=== PATIENT | female | born 1985 | race Caucasian/White ===

== ENCOUNTER → 2016-10-16 | Outpatient (CLI) | payer OTHER ==
[2016-10-16 12:29] LABS: ANION GAP 12 (5-19); BLOOD UREA NITROGEN 9 mg/dL (7-20); CALCIUM 9.2 mg/dL (8.4-10.2); CARBON DIOXIDE 26 mmol/L (22-30); CHLORIDE 106 mmol/L (98-107); CREATININE RESULT 0.79 mg/dL (0.52-1.25); GLUCOSE 76 mg/dL (75-110); POTASSIUM 4.4 mmol/L (3.6-5.0); SODIUM 143.8 mmol/L (137-145)
[2016-10-16 12:40] LABS: APPEARANCE,URINE CLEAR; BILIRUBIN,URINE NEGATIVE (NEGATIVE); GLUCOSE, URINE NEGATIVE (NEGATIVE); KETONES,URINE NEGATIVE (NEGATIVE); LEUKOCYTE ESTERASE,URINE NEGATIVE (NEGATIVE); NITRITE,URINE NEGATIVE (NEGATIVE); PROTEIN,URINE NEGATIVE (NEGATIVE); URINE SPECIFIC GRAVITY 1.009; UROBILINOGEN,URINE NEGATIVE mg/dL (<2.0)
== END ==
LOC: OD 11:17
PROVIDERS: ATTEND Internal Medicine Nephrology
DX: R31.29 Other microscopic hematuria (principal)
CPT/HCPCS: 36415; 80048; 81001

== ENCOUNTER 2017-02-06 10:17 | Observation (INO) | payer OTHER ==
[2017-02-06] MEDS ORDERED: NORMAL SALINE 1000 ML 1,000 ML IV ONE ×2 (11:14→13:39)
[2017-02-06] MEDS ORDERED: METOCLOPRAMIDE HCL ORAL SOLN 10 MG/10 ML UDCUP PO ONE (11:14)
[2017-02-06] MEDS ORDERED: LIDOCAINE 2% VISCOUS SOLN 20 ML UDCUP PO ONE (11:14)
[2017-02-06] MEDS ORDERED: MAG HYDROX/AL HYDROX/SIMETH SUSP 30 ML UDCUP PO ONE (11:14)
--- NOTE | 2017-02-06 11:14 | ER Document Report ---
ED Medical Screen (RME) - General Mode of Arrival: Ambulatory Information source: Patient TRAVEL OUTSIDE OF THE [place] IN LAST 30 DAYS: No - HPI Patient complains to provider of: Burning sensation to the sternum Onset: Other - 2 days ago Associated Symptoms: Other - see notes above - Related Data Smoking: Cigarettes Frequency of alcohol use: None Drug Abuse: None <SELENE DORANTES - Last Filed: 02/06/17 12:11> <SARAH MONTERO - Last Filed: 02/06/17 14:54> - General Chief Complaint: Abdominal Pain Stated Complaint: CENTER CHEST PAIN ABDOMEN PAIN Time Seen by Provider: 02/06/17 11:01 Notes: 31-year-old female with history of precancerous polyps and upper GI pain presents to the ED complaining of a burning sensation to the sternum that started 2 days ago. Patient reports that on 02/04/2017 the burning was accompanied with right lower rib pain, but not today. Patient recently had an incision and drainage procedure performed and reports that she has been feeling unwell since. Patient was prescribed clindamycin secondary to the procedure. Patient is additionally complaining of dry heaving, but no vomiting. Patient has a family history of gall bladder problems, but denies any problems herself. (SELENE DORANTES) - Related Data Allergies/Adverse Reactions: No Known Drug Allergies Allergy (Verified 02/06/17 11:00) Home Medications: Current Home Medications Clindamycin HCl [Clindamycin HCl] 300 mg PO TID 02/06/17 [History] Past Medical History - General Information source: Patient - Social History Chew tobacco use (# tins/day): No Frequency of alcohol use: None Drug Abuse: None Family history: Other - gall bladder problems - Past Medical History Cardiac Medical History: Denies: Hx Coronary Artery Disease, Hx Heart Attack, Hx Hypertension Pulmonary Medical History: Denies: Hx Asthma, Hx Bronchitis, Hx COPD, Hx Pneumonia Neurological Medical History: Denies: Hx Cerebrovascular Accident, Hx Seizures Renal/ Medical History: Denies: Hx Peritoneal Dialysis GI Medical History: Denies: Hx Hepatitis, Hx Hiatal Hernia, Hx Pancreatitis, Hx Ulcer Musculoskeltal Medical History: Denies Hx Arthritis Infectious Medical History: Denies: Hx Hepatitis Past Surgical History: Denies: Hx Hysterectomy, Hx Mastectomy, Hx Open Heart Surgery, Hx Pacemaker - Immunizations Hx Diphtheria, Pertussis, Tetanus Vaccination: No <SELENE DORANTES - Last Filed: 02/06/17 12:11> Review of Systems - Review of Systems Constitutional: See HPI EENT: No symptoms reported Cardiovascular: No symptoms reported Respiratory: No symptoms reported Gastrointestinal: See HPI, Other - dry heaving. denies: Vomiting Genitourinary: No symptoms reported Female Genitourinary: No symptoms reported Musculoskeletal: See HPI, Other - right lower rib pain Skin: No symptoms reported Hematologic/Lymphatic: No symptoms reported Neurological/Psychological: No symptoms reported -: Yes All other systems reviewed and negative <SELENE DORANTES - Last Filed: 02/06/17 12:11> Physical Exam - General General appearance: Alert In distress: None - HEENT Head: Normocephalic, Atraumatic - Respiratory Respiratory status: No respiratory distress - Abdominal Inspection: Normal Tenderness: Tender - RUQ and epigastric tenderness to palpation <SELENE DORANTES - Last Filed: 02/06/17 12:11> - Vital signs Vitals: Temp Pulse Resp BP Pulse Ox 98.3 F 79 14 126/79 H 98 02/06/17 10:29 02/06/17 10:29 02/06/17 10:29 02/06/17 10:29 02/06/17 10:29 Course - Laboratory Result Diagrams: 02/06/17 11:31 02/06/17 11:31 <SELENE DORANTES - Last Filed: 02/06/17 12:11> - Laboratory Result Diagrams: 02/06/17 11:31 02/06/17 11:31 <SARAH MONTERO - Last Filed: 02/06/17 14:54> - Vital Signs Vital signs: Temp Pulse Resp BP Pulse Ox 98.3 F 79 14 126/79 H 98 02/06/17 10:29 02/06/17 10:29 02/06/17 10:29 02/06/17 10:29 02/06/17 10:29 - Laboratory Laboratory results interpreted by me: 02/06/17 02/06/17 11:31 11:31 WBC 11.8 H Total Protein 8.4 H Doctor's Discharge <SELENE DORANTES - Last Filed: 02/06/17 12:11> <SARAH MONTERO - Last Filed: 02/06/17 14:54> - Discharge Clinical Impression: Cholelithiasis without cholecystitis Condition: Stable Disposition: ADMITTED INPATIENT Scribe Documentation - Scribe Written by Stephen:: Stephen Rangel, 02/06/2017 1219 acting as scribe for :: Sasha <SELENE DORANTES - Last Filed: 02/06/17 12:11>
[2017-02-06 11:51] LABS: ABSOLUTE EOSINOPHILS # (AUTO) 0.1 10^3/uL (0.0-0.6); ABSOLUTE LYMPHOCYTES (AUTO) 3.2 10^3/uL (0.5-4.7); ABSOLUTE MONOCYTES (AUTO) 0.6 10^3/uL (0.1-1.4); ABSOLUTE NEUT (AUTO) 7.8 10^3/uL (1.7-8.2); BASOPHILS % (AUTO) 0.3 % (0-2); HEMATOCRIT 41.5 % (36.0-47.0); HEMOGLOBIN 14.5 g/dL (12.0-15.5); LYMPHOCYTES % (AUTO) 27.3 % (13-45); MEAN CORPUSCULAR HEMOGLOBIN 31.5 pg (27.0-33.4); MEAN CORPUSCULAR HGB CONC 34.8 g/dL (32.0-36.0); MEAN CORPUSCULAR VOLUME 90 fl (80-97); MONOCYTES % (AUTO) 5.1 % (3-13); RED BLOOD COUNT 4.59 10^6/uL (3.72-5.28); RED CELL DISTRIBUTION WIDTH 13.1 % (11.5-14.0); SEGMENTED NEUTROPHILS % (AUTO) 66.3 % (42-78); WHITE BLOOD COUNT 11.8 10^3/uL (4.0-10.5)
[2017-02-06 12:16] LABS: ALANINE AMINOTRANSFERASE 49 U/L (9-52); ALBUMIN 4.5 g/dL (3.5-5.0); ALKALINE PHOSPHATASE 109 U/L (38-126); ANION GAP 13 (5-19); ASPARTATE AMINO TRANSFERASE 25 U/L (14-36); BILIRUBIN,DIRECT 0.4 mg/dL (0.0-0.4); BILIRUBIN,TOTAL 0.5 mg/dL (0.2-1.3); BLOOD UREA NITROGEN 13 mg/dL (7-20); CALCIUM 9.5 mg/dL (8.4-10.2); CARBON DIOXIDE 26 mmol/L (22-30); CHLORIDE 106 mmol/L (98-107); CREATININE RESULT 0.77 mg/dL (0.52-1.25); GLUCOSE 94 mg/dL (75-110); LIPASE 70.6 U/L (23-300); POTASSIUM 4.3 mmol/L (3.6-5.0); SODIUM 144.7 mmol/L (137-145); TOTAL PROTEIN 8.4 g/dL (6.3-8.2)
--- NOTE | 2017-02-06 13:03 | RADIOLOGY REPORT (SQ) ---
EXAM DESCRIPTION: U/S ABDOMEN LIMITED W/O DOP COMPLETED DATE/TIME: 02/06/2017 12:20 pm REASON FOR STUDY: RUQ pain, TTP, dry heaving COMPARISON: 12/25/2015 TECHNIQUE: Dynamic and static grayscale images acquired of the abdomen and recorded on PACS. Wilmero kevan selected color Doppler and spectral images recorded. LIMITATIONS: None. FINDINGS: PANCREAS: No masses. Visualized pancreatic duct normal caliber. LIVER: 17.9 cm. Normal echotexture. No masses. LIVER VASCULATURE: Normal directional flow of the main portal vein and hepatic veins. GALLBLADDER: A couple of large gallstones are present. The wall thickness is within normal limits. There is no pericholecystic fluid. ULTRASOUND-DETECTED HARGROVE'S SIGN: Negative. INTRAHEPATIC DUCTS AND COMMON DUCT: CBD and intrahepatic ducts normal caliber. No filling defects. INFERIOR VENA CAVA: Normal flow. AORTA: No aneurysm. RIGHT KIDNEY: Normal size, 10.9 cm. Normal echogenicity. No solid or suspicious masses. No hydroneph rosis. No calcifications. PERITONEAL AND RIGHT PLEURAL SPACE: No ascites or effusions. OTHER: No other significant findings. IMPRESSION: 1. Hepatomegaly. 2. Cholelithiasis with no evidence of acute cholecystitis. TECHNICAL DOCUMENTATION: JOB ID: [id number] [employer]- All Rights Reserved
--- NOTE | 2017-02-06 13:20 | ER Document Report ---
ED GI/ <JAIRO CHAPPELL - Last Filed: 02/06/17 13:35> - General Mode of Arrival: Ambulatory Information source: Patient TRAVEL OUTSIDE OF THE [place] IN LAST 30 DAYS: No <MIKEY MEDRANO - Last Filed: 02/06/17 14:17> - General Chief Complaint: Abdominal Pain Stated Complaint: CENTER CHEST PAIN ABDOMEN PAIN Time Seen by Provider: 02/06/17 11:01 Notes: Patient is a 31-year-old female who presents to the emergency department today with complaints of abdominal pain. Patient states 2 days ago she woke up at 0330 with what she thought was chest pain in the middle the night. Patient states today at 0730 she developed right upper quadrant pain that radiated to her back. Patient states her mother had to have a cholecystectomy around this age. (MIKEY MEDRANO) - Related Data Allergies/Adverse Reactions: No Known Drug Allergies Allergy (Verified 02/06/17 11:00) Home Medications: Current Home Medications Clindamycin HCl [Clindamycin HCl] 300 mg PO TID 02/06/17 [History] Past Medical History - General Information source: Patient - Social History Smoking Status: Never Smoker Cigarette use (# per day): No Chew tobacco use (# tins/day): No Frequency of alcohol use: None Drug Abuse: None Lives with: Family Family History: Reviewed & Not Pertinent Patient has suicidal ideation: No Surgical Hx: Negative - Immunizations Hx Diphtheria, Pertussis, Tetanus Vaccination: No <MIKEY MEDRANO - Last Filed: 02/06/17 14:17> Review of Systems - Review of Systems Constitutional: No symptoms reported EENT: No symptoms reported Cardiovascular: No symptoms reported Respiratory: No symptoms reported Gastrointestinal: See HPI, Abdominal pain Genitourinary: No symptoms reported Female Genitourinary: No symptoms reported Musculoskeletal: No symptoms reported Skin: No symptoms reported Hematologic/Lymphatic: No symptoms reported Neurological/Psychological: No symptoms reported -: Yes All other systems reviewed and negative <MIKEY MEDRANO - Last Filed: 02/06/17 14:17> Physical Exam <JAIRO CHAPPELL - Last Filed: 02/06/17 13:35> <MIKEY MEDRANO - Last Filed: 02/06/17 14:17> - Vital signs Vitals: Temp Pulse Resp BP Pulse Ox 98.3 F 79 14 126/79 H 98 02/06/17 10:29 02/06/17 10:29 02/06/17 10:29 02/06/17 10:29 02/06/17 10:29 - Notes Notes: Physical Exam: General: Alert, appears well. HEENT: Normocephalic. Atraumatic. PERRL. Extraocular movements intact. Oropharynx clear. Neck: Supple. Non-tender. Respiratory: No respiratory distress. Clear and equal breath sounds bilaterally. Cardiovascular: Regular rate and rhythm. Abdominal: Obese, right upper quadrant tenderness with palpation. No distension. Normal Bowel Sounds. Back: Non-tender. No deformity or step off. Extremities: Moves all four extremities. Upper extremities: Normal inspection. Normal ROM. Lower extremities: Normal inspection. No edema. Normal ROM. Neurological: Normal cognition. AAOx4. Normal speech. Psychological: Normal affect. Normal Mood. Skin: Area over left posterior medial thigh with small area of erosion consistent with healing abscess. (MIKEY MEDRANO) Course - Laboratory Result Diagrams: 02/06/17 11:31 02/06/17 11:31 - Diagnostic Test Radiology reviewed: Image reviewed, Reports reviewed - Gallbladder ultrasound shows 2 large gallstones without gallbladder wall thickening or cholecystic fluid - Consults Dr. Carr Time consulted: 13:20 Consulted provider: will come to ER <JAIRO CHAPPELL - Last Filed: 02/06/17 13:35> - Laboratory Result Diagrams: 02/06/17 11:31 02/06/17 11:31 <MIKEY MEDRANO - Last Filed: 02/06/17 14:17> - Vital Signs Vital signs: Temp Pulse Resp BP Pulse Ox 98.3 F 79 14 126/79 H 98 02/06/17 10:29 02/06/17 10:29 02/06/17 10:29 02/06/17 10:29 02/06/17 10:29 - Laboratory Laboratory results interpreted by me: 02/06/17 02/06/17 11:31 11:31 WBC 11.8 H Total Protein 8.4 H Discharge - Discharge Admitting Provider: Surgicalist Unit Admitted: Surgical Floor <JAIRO CHAPPELL - Last Filed: 02/06/17 13:35> <MIKEY MEDRANO - Last Filed: 02/06/17 14:17> - Discharge Clinical Impression: Cholelithiasis without cholecystitis Condition: Stable Disposition: ADMITTED INPATIENT Scribe Attestation: 02/06/17 13:26 I personally performed the services described in the documentation, reviewed and edited the documentation which was dictated to the scribe in my presence, and it accurately records my words and actions. (JAIRO CHAPPELL) Scribe Documentation - Scribe Written by Stephen:: Stephen Buckner, 02/06/2017 1417 acting as scribe for :: Ronnie <MIKEY MEDRANO - Last Filed: 02/06/17 14:17>
[2017-02-06] MEDS ORDERED: CEFAZOLIN 1 GM/D5W RTU 1 GM/50 ML RTUPB IV ONE (13:37)
[2017-02-06] MEDS ORDERED: FENTANYL CITRATE INJ/PF 100 MCG/2 ML AMPUL ONE (13:43)
[2017-02-06] MEDS ORDERED: PROPOFOL INJ 200 MG/20 ML VIAL IV ONE (13:43)
[2017-02-06] MEDS ORDERED: ACETAMINOPHEN 100 ML IV ONE (13:43)
[2017-02-06] MEDS ORDERED: MIDAZOLAM 2 MG/2 ML INJ ONE (13:43)
[2017-02-06] MEDS ORDERED: HYDROMORPHONE HCL INJ/PF 2 MG/ML AMPULE ONE (13:43)
[2017-02-06] MEDS ORDERED: BUPIVACAINE HCL 0.25 % INJ/PF (2.5 MG/1 ML) 30 ML VIAL ONE (13:45)
[2017-02-06] MEDS ORDERED: MORPHINE SULFATE 10 MG/ML INJ IV PRN ×3 (13:49→16:36)
[2017-02-06] MEDS ORDERED: ONDANSETRON HCL INJ/PF 4 MG/2 ML SDV IV PRN ×2 (13:50→15:04)
--- NOTE | 2017-02-06 14:03 | HISTORY AND PHYSICAL E ---
History and Physical NAME: ELGIN HERNANDEZ : 1985 AGE: 31Y ADMITTED: 02/06/2017 ROOM: ED16 CHIEF COMPLAINT: Abdominal pains. HISTORY OF PRESENT ILLNESS: This is a 31-year-old female complaining of severe epigastric and right upper quadrant pains last night after he ate dinner that was somewhat fatty. He had some nausea and the pain also radiating to the back. Pain was worse and came to the emergency room where ultrasound of the gallbladder showed gallstones. Her white count was elevated to 11.8. Temp is 98.3. PAST HISTORY: Just had a cyst I and D on the left thigh. FAMILY HISTORY: Kidney disease, but her BUN is only 13 and creatinine is normal at 0.77 today. SOCIAL HISTORY: Denies smoking nor drinking nor recreational drug use. ALLERGIES: None known. REVIEW OF SYSTEMS: GI as in HPI. Denies any *------* or urine problems. No cough. No shortness of breath. No diarrhea. No constipation. No seizure disorder. No skin rash or easy bruisability or lymph node enlargement. Rest of the systems are negative. PHYSICAL EXAMINATION: GENERAL: Well-developed, slightly overweight, female alert and oriented, complained of abdominal pain. NECK: Supple. No thyromegaly. LUNGS: Clear. HEART: Regular sinus rhythm. ABDOMEN: Soft with tenderness in the right upper quadrant in the epigastric area. EXTREMITIES: No edema. IMPRESSION: Acute calculous cholecystitis. PLAN: Admission for laparoscopic cholecystectomy. Start IV antibiotics and hydrate. DICTATING PHYSICIAN: SEMAJ PONCE M.D. [id number] PHY#: [id number] ID: [id number] JOB#: [id number] ACCT: [id number] cc:SEMAJ PONCE M.D. >
[2017-02-06] MEDS ORDERED: GLYCOPYRROLATE INJ 0.4 MG/2 ML VIAL ONE (14:12)
[2017-02-06] MEDS ORDERED: DEXAMETHASONE SOD PHOSPHATE INJ 4 MG/1 ML VIAL ONE (14:12)
[2017-02-06] MEDS ORDERED: NEOSTIGMINE METHYLSULFATE 10 MG/10 ML VIAL ONE (14:12)
[2017-02-06] MEDS ORDERED: SUCCINYLCHOLINE CHLORIDE INJ 200 MG/10 ML VIAL ONE (14:12)
[2017-02-06] MEDS ORDERED: ONDANSETRON HCL INJ/PF 4 MG/2 ML SDV ONE (14:12)
[2017-02-06] MEDS ORDERED: CEFAZOLIN INJ 1 GM VIAL ONE (14:45)
[2017-02-06] MEDS ORDERED: MEPERIDINE HCL/PF INJ 25 MG/1 ML DISP.SYRIN IV PRN (15:04)
[2017-02-06] MEDS ORDERED: PROMETHAZINE HCL INJ 25 MG/1 ML VIAL IV PRN ×2 (15:04)
[2017-02-06] MEDS ORDERED: DIPHENHYDRAMINE HCL 50 MG/ML VIAL IV PRN (15:04)
[2017-02-06] MEDS ORDERED: FENTANYL CITRATE INJ/PF 100 MCG/2 ML AMPUL IV PRN ×3 (15:04)
[2017-02-06] MEDS ORDERED: OXYCODONE-ACETAMINOPHEN 5-325 MG TABLET PO PRN ×2 (15:04)
[2017-02-06] MEDS: MEPERIDINE HCL/PF INJ 25 MG/1 ML DISP.SYRIN ONE ×2 (15:55→16:00)
--- NOTE | 2017-02-06 16:48 | OPERATIVE REPORT E ---
Operative Report NAME: ELGIN HERNANDEZ : 1985 AGE: 31Y DATE OF SURGERY: 02/06/2017 ROOM: ED16 PREOPERATIVE DIAGNOSIS: Acute calculous cholecystitis. PROCEDURE DONE: Laparoscopic cholecystectomy. SURGEON: SEMAJ PONCE M.D. ANESTHESIA: General. INDICATION: This is a 31-year-old female who complained of epigastric and right upper quadrant with nausea last night after a fatty meal. This morning she had an ultrasound of the gallbladder in the emergency room which showed gallstones. Her white count is slightly elevated and speeder tender in the right upper quadrant. DESCRIPTION OF PROCEDURE: After adequate general anesthesia, patient was placed in supine position and the abdomen prepped and draped in the usual sterile fashion. Appropriate timeout was called. Next, an infraumbilical elliptical incision was made and the fascia identified and grasped with 2 Malini clamps and divided between the 2 Malini clamps. The abdominal cavity was then entered with the use of a hemostat. The finger was able to be passed through the fascia and blunt dissection around the intraperitoneal area was done. Next, the Sin trocar was then inserted through the fascia into the abdominal cavity and CO2 insufflated through the trocar up to a pressure of 15 mmHg. Next, 3 other trocars were placed, a 12 mm in the subxiphoid and two 5 mm in the right upper quadrant under direct vision. The gallbladder was then identified and grasped at the fundus. There were some adhesions by omentum around the gallbladder which was a little bit thickened. Blunt dissection was then performed with the use of [place] dissector and subsequently divided and cauterized with the use of Harmonic hope close to the gallbladder. The infundibulum was then identified and the cystic duct dissected and clipped with hemoclips and divided between the hemoclips. The cystic duct may be just slightly dilated. Next, the cystic artery was then identified and clipped with hemoclips and divided and cauterized with Harmonic hope just before the gallbladder. The gallbladder was then taken off the liver bed with the use of harmonic hope. The gallbladder was completely removed and placed in an Endobag and pulled out of the umbilical port. Gallbladder bed was then inspected and no evidence of bleeding noted. It was irrigated with saline solution and still appears to have good hemostasis. All the trocars were then removed and CO2 allowed to come out of the trocar sites. The fascial defect at the infraumbilical area was then closed with a [id number] suture using 0 Vicryl. All the skin incisions were then closed with running subcuticular 4-0 Vicryl undyed. Dermabond dressings were used over the incision sites. Patient tolerated the procedure well. Needle, instrument, and sponge counts were all corrected. Estimated blood loss about 10 mL. Patient then brought to the recovery room in satisfactory condition. DICTATING PHYSICIAN: SEMAJ PONCE M.D. [id number] PHY#: [id number] ID: [id number] JOB#: [id number] ACCT: [id number] cc:SEMAJ PONCE M.D. >
[2017-02-06] MEDS ORDERED: INFLUENZA ADLT QUAD (36MOS+) 2017-18 VAC 0.5 ML SYR IM PRN ×2 (18:03→18:05)
[2017-02-06] MEDS: NORMAL SALINE 1000 ML 1,000 ML IV PRN (19:30)
[2017-02-06] MEDS: OXYCODONE-ACETAMINOPHEN 5-325 MG TABLET PO PRN (20:08)
[2017-02-06] MEDS: CEFAZOLIN 1 GM/D5W RTU 1 GM/50 ML RTUPB IV SCH (21:43)
[2017-02-07] MEDS: OXYCODONE-ACETAMINOPHEN 5-325 MG TABLET PO PRN ×2 (00:17→06:39)
[2017-02-07] MEDS: NORMAL SALINE 1000 ML 1,000 ML IV PRN (04:17)
[2017-02-07] MEDS: CEFAZOLIN 1 GM/D5W RTU 1 GM/50 ML RTUPB IV SCH (05:17)
[2017-02-07 12:01] VITALS: BP 95/53
== END 2017-02-07 12:45 | disposition home or self-care (01) ==
LOC: ER 10:17 → INTOOBSV 13:41 → EH 13:41 → 2N 16:45
PROVIDERS: ATTEND Surgery
PROC: 0FT44ZZ Resection of Gallbladder, Percutaneous Endoscopic Approach (ICD-10-PCS; 2017-02-06)
PROC: 3E0234Z Introduction of Serum, Toxoid and Vaccine into Muscle, Percutaneous Approach (ICD-10-PCS; principal; 2017-02-07)
DX: K80.12 Calculus of gallbladder with acute and chronic cholecystitis without obstruction (principal); R10.11 Right upper quadrant pain; E66.9 Obesity, unspecified; R07.81 Pleurodynia; Z23 Encounter for immunization; Z84.1 Family history of disorders of kidney and ureter; Z83.79 Family history of other diseases of the digestive system; Z68.32 Body mass index [BMI] 32.0-32.9, adult
CPT/HCPCS: 99285; 96360; 36415; 83690; 84703; 85025; 80053; 88304 ×2; 76705; 90686; 47562; J2250; J0690 ×3; J1100; J3010; J3490; J2175; J2270; J1170; J0330; J2405; J7030 ×2; J2704; J0131; 790

== ENCOUNTER 2019-01-12 18:16 | Emergency (ER) | payer OTHER ==
[2019-01-12] MEDS ORDERED: ASPIRIN 81 MG TABLET, CHEWABLE PO ONE (18:37)
--- NOTE | 2019-01-12 18:37 | ER Document Report ---
ED Medical Screen (RME) - General Chief Complaint: Chest Pain Stated Complaint: CHEST PAIN Time Seen by Provider: 01/12/19 18:32 Primary Care Provider: TYRONE VELASQUEZ JR, MD [Primary Care Provider] - Follow up as needed Notes: This 33-year-old female with no history of cardiac disease presents to the emergency department because she felt the chest heaviness in her chest approximately 30 minutes ago and then some epigastric pain. Patient reports she feels like she is going to pass out. She feels lightheaded dizzy. Patient is pacing in the exam room she was instructed to sit down because she felt like she is going to pass out. Patient reports it feels worse when she sits down. Denies family history of cardiac disease but reports she does not know her father's side of family. Feels nauseated but reports she does not feel like she is going to throw up. EKG shows sinus rhythm no ST elevation no T wave inversion. I have greeted and performed a rapid initial assessment of this patient. A comprehensive ED assessment and evaluation of the patient, analysis of test results and completion of the medical decision making process will be conducted by additional ED providers. Dictation of this chart was performed using voice recognition software; therefore, there may be some unintended grammatical errors. TRAVEL OUTSIDE OF THE [place] IN LAST 30 DAYS: No - Related Data Allergies/Adverse Reactions: No Known Drug Allergies Allergy (Verified 02/06/17 11:00) Past Medical History - Social History Family history: Other - gall bladder problems - Past Medical History Cardiac Medical History: Denies: Hx Coronary Artery Disease, Hx Heart Attack, Hx Hypertension Pulmonary Medical History: Denies: Hx Asthma, Hx Bronchitis, Hx COPD, Hx Pneumonia Neurological Medical History: Denies: Hx Cerebrovascular Accident, Hx Seizures Renal/ Medical History: Denies: Hx Peritoneal Dialysis GI Medical History: Denies: Hx Hepatitis, Hx Hiatal Hernia, Hx Pancreatitis, Hx Ulcer Musculoskeltal Medical History: Denies Hx Arthritis Infectious Medical History: Denies: Hx Hepatitis Past Surgical History: Denies: Hx Hysterectomy, Hx Mastectomy, Hx Open Heart Surgery, Hx Pacemaker - Immunizations Hx Diphtheria, Pertussis, Tetanus Vaccination: No History of Influenza Vaccine for 01/2017 - 06/2017 Season: No Physical Exam - Vital signs Vitals: Temp Pulse Resp BP Pulse Ox 98.1 F 91 18 133/80 H 96 01/12/19 18:26 01/12/19 18:26 01/12/19 18:26 01/12/19 18:26 01/12/19 18:26 Course - Vital Signs Vital signs: Temp Pulse Resp BP Pulse Ox 98.1 F 91 18 133/80 H 96 01/12/19 18:26 01/12/19 18:26 01/12/19 18:26 01/12/19 18:26 01/12/19 18:26 Doctor's Discharge - Discharge Referrals: EVA QUIÑONEZ,TYRONE Woo MD [Primary Care Provider] - Follow up as needed
--- NOTE | 2019-01-12 18:39 | EKG REPORT ---
SEVERITY:- OTHERWISE NORMAL ECG - SINUS ARRHYTHMIA, RATE 58-95 : Confirmed by: Chapo Holm MD 12-Jan-2019 18:38:48
[2019-01-12 18:58] LABS: APPEARANCE,URINE CLEAR; BILIRUBIN,URINE NEGATIVE (NEGATIVE); GLUCOSE, URINE NEGATIVE (NEGATIVE); KETONES,URINE NEGATIVE (NEGATIVE); LEUKOCYTE ESTERASE,URINE NEGATIVE (NEGATIVE); NITRITE,URINE NEGATIVE (NEGATIVE); PROTEIN,URINE NEGATIVE (NEGATIVE); URINE SPECIFIC GRAVITY 1.001; UROBILINOGEN,URINE NEGATIVE mg/dL (<2.0)
[2019-01-12 18:59] LABS: ABSOLUTE EOSINOPHILS # (AUTO) 0.2 10^3/uL (0.0-0.6); ABSOLUTE LYMPHOCYTES (AUTO) 4.1 10^3/uL (0.5-4.7); ABSOLUTE MONOCYTES (AUTO) 0.8 10^3/uL (0.1-1.4); ABSOLUTE NEUT (AUTO) 6.9 10^3/uL (1.7-8.2); BASOPHILS % (AUTO) 0.4 % (0-2); COLOR,URINE STRAW; EOSINOPHILS % (AUTO) 1.3 % (0-6); HEMATOCRIT 40.6 % (36.0-47.0); HEMOGLOBIN 13.9 g/dL (12.0-15.5); LYMPHOCYTES % (AUTO) 34.1 % (13-45); MEAN CORPUSCULAR HGB CONC 34.1 g/dL (32.0-36.0); MEAN CORPUSCULAR VOLUME 91 fl (80-97); MONOCYTES % (AUTO) 6.4 % (3-13); PLATELET COUNT 391 10^3/uL (150-450); RED BLOOD COUNT 4.47 10^6/uL (3.72-5.28); RED CELL DISTRIBUTION WIDTH 13.4 % (11.5-14.0); SEGMENTED NEUTROPHILS % (AUTO) 57.8 % (42-78); TOTAL CELLS COUNTED % (AUTO) 100 %
--- NOTE | 2019-01-12 19:07 | RADIOLOGY REPORT (SQ) ---
EXAM DESCRIPTION: CHEST 2 VIEWS COMPLETED DATE/TIME: 01/12/2019 6:53 pm REASON FOR STUDY: chest heaviness COMPARISON: None. EXAM PARAMETERS: NUMBER OF VIEWS: two views TECHNIQUE: Digital Frontal and Lateral radiographic views of the chest acquired. RADIATION DOSE: NA LIMITATIONS: none FINDINGS: LUNGS AND PLEURA: No opacities, masses or pneumothorax. No pleural effusion. MEDIASTINUM AND HILAR STRUCTURES: No masses or contour abnormalities. HEART AND VASCULAR STRUCTURES: Heart normal size. No evidence for failure. BONES: No acute findings. HARDWARE: None in the chest. OTHER: No other significant finding. IMPRESSION: NO ACUTE RADIOGRAPHIC FINDING IN THE CHEST. TECHNICAL DOCUMENTATION: JOB ID: [id number] [employer]- All Rights Reserved Reading location - IP/workstation name: [email or web address]
[2019-01-12 19:24] LABS: ALBUMIN 4.3 g/dL (3.5-5.0); ALKALINE PHOSPHATASE 67 U/L (38-126); ANION GAP 11 (5-19); ASPARTATE AMINO TRANSFERASE 22 U/L (14-36); BILIRUBIN,DIRECT 0.2 mg/dL (0.0-0.4); BILIRUBIN,TOTAL 0.5 mg/dL (0.2-1.3); BLOOD UREA NITROGEN 8 mg/dL (7-20); CALCIUM 9.9 mg/dL (8.4-10.2); CARBON DIOXIDE 27 mmol/L (22-30); CHLORIDE 103 mmol/L (98-107); GLUCOSE 125 mg/dL (75-110); POTASSIUM 4.2 mmol/L (3.6-5.0); TOTAL PROTEIN 7.9 g/dL (6.3-8.2)
--- NOTE | 2019-01-12 20:20 | ER Document Report ---
ED General - General Chief Complaint: Chest Pain Stated Complaint: CHEST PAIN Time Seen by Provider: 01/12/19 18:32 Primary Care Provider: TYRONE VELASQUEZ JR, MD [Primary Care Provider] - Follow up in 3-5 days (If symptoms become recurrent) TRAVEL OUTSIDE OF THE [place] IN LAST 30 DAYS: No - HPI Notes: Presents with sudden onset of tight chest pain and epigastric pain prior to arr ival. She states this occurred approximately 2 weeks ago with spontaneous resolution. Hyperventilating when this occurred and felt like she is going to pass out. she has not had recent fevers illnesses cough or congestion. She is a daily smoker. She is back to baseline emergency department with no symptoms. No history of sudden in the family. No history of blood clots and PERC negative in the emergency department. Low risk heart score. Her is being treated for thyroid cancer currently in the mother states she is been under more stress than normal. She has had her gallbladder removed - Related Data Allergies/Adverse Reactions: No Known Drug Allergies Allergy (Verified 02/06/17 11:00) Past Medical History - Social History Smoking Status: Current Every Day Smoker Family History: Reviewed & Not Pertinent Patient has suicidal ideation: No Patient has homicidal ideation: No - Past Medical History Cardiac Medical History: Denies: Hx Coronary Artery Disease, Hx Heart Attack, Hx Hypertension Pulmonary Medical History: Denies: Hx Asthma, Hx Bronchitis, Hx COPD, Hx Pneumonia Neurological Medical History: Denies: Hx Cerebrovascular Accident, Hx Seizures Renal/ Medical History: Denies: Hx Peritoneal Dialysis GI Medical History: Denies: Hx Hepatitis, Hx Hiatal Hernia, Hx Pancreatitis, Hx Ulcer Musculoskeletal Medical History: Denies Hx Arthritis Infectious Medical History: Denies: Hx Hepatitis Past Surgical History: Denies: Hx Hysterectomy, Hx Mastectomy, Hx Open Heart Surgery, Hx Pacemaker - Immunizations Hx Diphtheria, Pertussis, Tetanus Vaccination: No Review of Systems - Review of Systems Constitutional: No symptoms reported EENT: No symptoms reported Cardiovascular: See HPI Respiratory: See HPI Gastrointestinal: No symptoms reported Genitourinary: No symptoms reported Female Genitourinary: No symptoms reported Musculoskeletal: No symptoms reported Skin: No symptoms reported Hematologic/Lymphatic: No symptoms reported Neurological/Psychological: No symptoms reported Physical Exam - Vital signs Vitals: Temp Pulse Resp BP Pulse Ox 98.1 F 91 18 133/80 H 96 01/12/19 18:26 01/12/19 18:26 01/12/19 18:26 01/12/19 18:26 01/12/19 18:26 - General General appearance: Appears well, Alert - HEENT Head: Normocephalic, Atraumatic Eyes: Normal Conjunctiva: Normal Cornea: Normal Extraocular movements intact: Yes Pupils: PERRL - Respiratory Respiratory status: No respiratory distress Chest status: Nontender Breath sounds: Normal Chest palpation: Normal - Cardiovascular Rhythm: Regular Heart sounds: Normal auscultation Murmur: No Friction rub: No - Abdominal Inspection: Normal Distension: No distension Bowel sounds: Normal Tenderness: Nontender - Back Back: Normal - Extremities General upper extremity: Normal inspection, Normal ROM General lower extremity: Normal inspection, Normal ROM - Neurological Neuro grossly intact: Yes Cognition: Normal Orientation: AAOx4 Course - Re-evaluation Re-evalutation: 01/12/19 20:18 Well-appearing patient with no concerning findings on EKG and chest x-ray. Si milar symptoms occurred roughly 2 weeks ago. She has been under more stress. Discussed stress reactions with the patient. Will provide Vistaril and primary care follow-up if symptoms were to continue. No red flags to suggest any other life-threatening pathologies including pulmonary embolism, ACS, dissection, pneumonia, pericarditis. - Vital Signs Vital signs: Temp Pulse Resp BP Pulse Ox 98.1 F 91 18 133/80 H 96 01/12/19 18:26 01/12/19 18:26 01/12/19 18:26 01/12/19 18:26 01/12/19 18:26 - Laboratory Result Diagrams: 01/12/19 18:45 01/12/19 18:45 Laboratory results interpreted by me: 01/12/19 01/12/19 01/12/19 18:45 18:45 18:45 WBC 12.0 H Glucose 125 H Urine Blood LARGE H - EKG Interpretation by Md EKG shows normal: Sinus rhythm Rate: Normal Rhythm: NSR Discharge - Discharge Clinical Impression: Chest pain Qualifiers: Chest pain type: unspecified Qualified Code(s): R07.9 - Chest pain, unspecified Condition: Good Disposition: HOME, SELF-CARE Prescriptions: Hydroxyzine Pamoate [Vistaril 50 mg Capsule] 50 mg PO ASDIR PRN #30 capsule PRN Reason: Referrals: TYRONE VELASQUEZ JR, MD [Primary Care Provider] - Follow up in 3-5 days (If symptoms become recurrent)
[2019-01-12] MEDS ORDERED: HYDROXYZINE PAMOATE 50 MG CAPSULE PO ONE (20:24)
[2019-01-12 20:58] VITALS: BP 111/69
== END 2019-01-12 20:38 | disposition home or self-care (01) ==
LOC: ER 18:16
DX: R07.89 Other chest pain (principal); R10.13 Epigastric pain; F17.200 Nicotine dependence, unspecified, uncomplicated; C73 Malignant neoplasm of thyroid gland; Z90.49 Acquired absence of other specified parts of digestive tract
CPT/HCPCS: 36415; 71046; 80053; 81001; 81025; 85025; 93005; 93010; 99285

== ENCOUNTER 2019-01-15 23:56 | Emergency (ER) | payer OTHER ==
[2019-01-16 00:03] VITALS: BP 108/92
[2019-01-16 04:27] LABS: APPEARANCE,URINE SLIGHTLY-CLOUDY; BILIRUBIN,URINE NEGATIVE (NEGATIVE); COLOR,URINE YELLOW; GLUCOSE, URINE NEGATIVE (NEGATIVE); KETONES,URINE NEGATIVE (NEGATIVE); LEUKOCYTE ESTERASE,URINE NEGATIVE (NEGATIVE); NITRITE,URINE NEGATIVE (NEGATIVE); PROTEIN,URINE NEGATIVE (NEGATIVE); URINE SPECIFIC GRAVITY 1.006; UROBILINOGEN,URINE NEGATIVE mg/dL (<2.0)
--- NOTE | 2019-01-16 04:28 | ER Document Report ---
ED General - General Chief Complaint: Chest Pain Stated Complaint: CHEST PAINS Time Seen by Provider: 01/16/19 04:16 Primary Care Provider: TYRONE VELASQUEZ JR, MD [Primary Care Provider] - Follow up as needed Notes: Patient is a 33-year-old female presents to the emergency department with generalized chest pain. Patient was seen at this facility on January 12 for same. She was diagnosed with anxiety and sent home on Vistaril. States this evening she had a squeezing sensation in her chest. States she felt as though her heart was beating very fast she also feels as though she was breathing very fast. Patient states she was just sitting on the couch doing nothing. Patient voices that her is being treated for cancer but has been treated for cancer for the last 2 years. Patient's denying any other anxiety factors currently. Patient's denying any diaphoresis, nausea, vomiting, abdominal pain. Upon my assessment patient is currently denying all complaints. States she no longer feels the squeezing sensation in her chest. States she does not feel as though her heart is racing and she feels as though she has calmed down. Patient voices she did take Vistaril as prescribed by the doctor when she was here on the . States she is unsure if that helped her at all. TRAVEL OUTSIDE OF THE [place] IN LAST 30 DAYS: No - Related Data Allergies/Adverse Reactions: No Known Drug Allergies Allergy (Verified 02/06/17 11:00) Past Medical History - General Information source: Patient - Social History Smoking Status: Never Smoker Family History: Reviewed & Not Pertinent Patient has suicidal ideation: No Patient has homicidal ideation: No - Past Medical History Cardiac Medical History: Denies: Hx Coronary Artery Disease, Hx Heart Attack, Hx Hypertension Pulmonary Medical History: Denies: Hx Asthma, Hx Bronchitis, Hx COPD, Hx Pneumonia Neurological Medical History: Denies: Hx Cerebrovascular Accident, Hx Seizures Renal/ Medical History: Denies: Hx Peritoneal Dialysis GI Medical History: Denies: Hx Hepatitis, Hx Hiatal Hernia, Hx Pancreatitis, Hx Ulcer Musculoskeletal Medical History: Denies Hx Arthritis Infectious Medical History: Denies: Hx Hepatitis Past Surgical History: Denies: Hx Hysterectomy, Hx Mastectomy, Hx Open Heart Surgery, Hx Pacemaker - Immunizations Hx Diphtheria, Pertussis, Tetanus Vaccination: No Review of Systems - Review of Systems Constitutional: denies: Fever EENT: No symptoms reported Cardiovascular: See HPI Respiratory: See HPI Gastrointestinal: No symptoms reported Genitourinary: No symptoms reported Female Genitourinary: No symptoms reported Musculoskeletal: No symptoms reported Skin: No symptoms reported Hematologic/Lymphatic: No symptoms reported Neurological/Psychological: No symptoms reported Physical Exam - Vital signs Vitals: Temp Pulse Resp BP Pulse Ox 97.9 F 84 17 108/92 H 99 01/16/19 00:00 01/16/19 00:00 01/16/19 00:00 01/16/19 00:00 01/16/19 00:00 - Notes Notes: GENERAL: Alert, interacts well. No acute distress. HEAD: Normocephalic, atraumatic. EYES: Pupils equal, round, and reactive to light. Extraocular movements intact. ENT: Oral mucosa moist, tongue midline. NECK: Full range of motion. Supple. Trachea midline. LUNGS: Clear to auscultation bilaterally, no wheezes, rales, or rhonchi. No respiratory distress. HEART: Regular rate and rhythm. No murmur ABDOMEN: Soft, non-tender. Non-distended. Bowel sounds present in all 4 quadrants. EXTREMITIES: Moves all 4 extremities spontaneously. No edema, normal radial and dorsalis pedis pulses bilaterally. No cyanosis. BACK: no cervical, thoracic, lumbar midline tenderness. No saddle anesthesia, normal distal neurovascular exam. NEUROLOGICAL: Alert and oriented x3. Normal speech. cranial nerves II through XII grossly intact PSYCH: Normal affect, normal mood. SKIN: Warm, dry, normal turgor. No rashes or lesions noted. Course - Re-evaluation Re-evalutation: 01/16/19 04:26 Initial orders placed by triage nurse. Upon my assessment of the patient she has no complaints. States she is concerned because she does not feel as though the Vistaril helped her racing heart. States it took "a lot longer for my heart to stop racing this time." I discussed with patient at length my suggestion to draw cardiac enzymes and to have them trended in the emergency department. Patient voices that her is sleeping in the lobby. States she cannot stay in the emergency department any longer. States she will follow-up with primary care provider on Friday. Patient is willing to sign an AGAINST MEDICAL ADVICE form. Form signed by patient and witnessed by nursing staff. - Vital Signs Vital signs: Temp Pulse Resp BP Pulse Ox 97.9 F 84 17 108/92 H 99 01/16/19 00:00 01/16/19 00:00 01/16/19 00:00 01/16/19 00:00 01/16/19 00:00 - Laboratory Laboratory results interpreted by me: 01/16/19 00:20 Urine Blood LARGE H Discharge - Discharge Clinical Impression: Left against medical advice, Anxiety Chest pain Qualifiers: Chest pain type: unspecified Qualified Code(s): R07.9 - Chest pain, unspecified Condition: Fair Disposition: AGAINST MEDICAL ADVICE Instructions: Chest Pain of Unclear Cause ([facility]) Additional Instructions: As we discussed you have been seen and treated in the emergency department for your generalized chest pain. You are opting to leave the emergency department AGAINST MEDICAL ADVICE. Is my recommendation that you do have initial blood work performed. Please make sure he follow-up with your primary care provider in the next 24 hours or return to the emergency room for any further concerns. Referrals: TYRONE VELASQUEZ JR, MD [Primary Care Provider] - Follow up as needed
--- NOTE | 2019-01-16 22:04 | EKG REPORT ---
SEVERITY:- OTHERWISE NORMAL ECG - SINUS ARRHYTHMIA : Confirmed by: Chapo Holm MD 16-Jan-2019 22:03:39
== END 2019-01-16 04:38 | disposition left against medical advice (07) ==
LOC: ER 23:56
DX: Z53.21 Procedure and treatment not carried out due to patient leaving prior to being seen by health care provider (principal); R07.9 Chest pain, unspecified; F41.9 Anxiety disorder, unspecified; Z79.899 Other long term (current) drug therapy
CPT/HCPCS: 81001; 93005; 93010; 99285

== ENCOUNTER 2019-01-31 21:39 | Emergency (ER) | payer OTHER ==
--- NOTE | 2019-01-31 22:07 | ER Document Report ---
ED Medical Screen (RME) - General Stated Complaint: SHORTNESS OF BREATH Time Seen by Provider: 01/31/19 22:02 Primary Care Provider: TYRONE VELASQUEZ JR, MD [Primary Care Provider] - Follow up as needed Mode of Arrival: Ambulatory Information source: Patient Notes: 33-year-old female presents emergency department with complaints of feeling short of breath like she cannot get a good breath started tonight at approximately 2100. Patient is wearing a front desk monitor that was placed by [facility]. She reports since November she has had episodes of syncope and severe chest pain. Denies history of cardiac disease. Denies recent trip. Denies control at this point. Reports she is to take pill but she quit taking that. Patient reports she was just laying in bed when she had this sensation. I have greeted and performed a rapid initial assessment of this patient. A comprehensive ED assessment and evaluation of the patient, analysis of test results and completion of the medical decision making process will be conducted by additional ED providers. Dictation of this chart was performed using voice recognition software; therefore, there may be some unintended grammatical e rrors. TRAVEL OUTSIDE OF THE [place] IN LAST 30 DAYS: No - Related Data Allergies/Adverse Reactions: No Known Drug Allergies Allergy (Verified 02/06/17 11:00) Past Medical History - Social History Family history: Other - gall bladder problems - Past Medical History Cardiac Medical History: Denies: Hx Coronary Artery Disease, Hx Heart Attack, Hx Hypertension Pulmonary Medical History: Denies: Hx Asthma, Hx Bronchitis, Hx COPD, Hx Pneumonia Neurological Medical History: Denies: Hx Cerebrovascular Accident, Hx Seizures Renal/ Medical History: Denies: Hx Peritoneal Dialysis GI Medical History: Denies: Hx Hepatitis, Hx Hiatal Hernia, Hx Pancreatitis, Hx Ulcer Musculoskeltal Medical History: Denies Hx Arthritis Infectious Medical History: Denies: Hx Hepatitis Past Surgical History: Denies: Hx Hysterectomy, Hx Mastectomy, Hx Open Heart Surgery, Hx Pacemaker - Immunizations Hx Diphtheria, Pertussis, Tetanus Vaccination: No Physical Exam - Vital signs Vitals: Temp Pulse Resp BP Pulse Ox 97.8 F 59 L 18 130/69 H 100 01/31/19 21:43 01/31/19 21:43 01/31/19 21:43 01/31/19 21:43 01/31/19 21:43 Course - Vital Signs Vital signs: Temp Pulse Resp BP Pulse Ox 97.8 F 59 L 18 130/69 H 100 01/31/19 21:43 01/31/19 21:43 01/31/19 21:43 01/31/19 21:43 01/31/19 21:43 Doctor's Discharge - Discharge Referrals: TYRONE VELASQUEZ JR, MD [Primary Care Provider] - Follow up as needed
--- NOTE | 2019-01-31 23:01 | RADIOLOGY REPORT (SQ) ---
EXAM DESCRIPTION: XR CHEST 2 VIEWS COMPLETED DATE/TME: 01/31/2019 22:05 CLINICAL HISTORY: 33 years, Female, sob COMPARISON: 01/12/2019 chest NUMBER OF VIEWS: 2 TECHNIQUE: 2 view chest LIMITATIONS: None. FINDINGS: Heart size normal. Lungs clear. No pneumothorax IMPRESSION: Negative chest copyright 2010 [employer]- All Rights Reserved
[2019-01-31 23:31] LABS: ABSOLUTE EOSINOPHILS # (AUTO) 0.1 10^3/uL (0.0-0.6); ABSOLUTE LYMPHOCYTES (AUTO) 4.4 10^3/uL (0.5-4.7); ABSOLUTE MONOCYTES (AUTO) 0.9 10^3/uL (0.1-1.4); ABSOLUTE NEUT (AUTO) 8.6 10^3/uL (1.7-8.2); BASOPHILS % (AUTO) 0.2 % (0-2); HEMATOCRIT 39.9 % (36.0-47.0); HEMOGLOBIN 13.7 g/dL (12.0-15.5); LYMPHOCYTES % (AUTO) 31.5 % (13-45); MEAN CORPUSCULAR HEMOGLOBIN 31.3 pg (27.0-33.4); MEAN CORPUSCULAR HGB CONC 34.4 g/dL (32.0-36.0); MEAN CORPUSCULAR VOLUME 91 fl (80-97); MONOCYTES % (AUTO) 6.4 % (3-13); PLATELET COUNT 294 10^3/uL (150-450); RED BLOOD COUNT 4.39 10^6/uL (3.72-5.28); RED CELL DISTRIBUTION WIDTH 13.2 % (11.5-14.0); SEGMENTED NEUTROPHILS % (AUTO) 60.9 % (42-78); TOTAL CELLS COUNTED % (AUTO) 100 %; WHITE BLOOD COUNT 14.1 10^3/uL (4.0-10.5)
[2019-01-31 23:47] LABS: ALBUMIN 4.4 g/dL (3.5-5.0); ALKALINE PHOSPHATASE 55 U/L (38-126); ANION GAP 8 (5-19); APPEARANCE,URINE CLEAR; ASPARTATE AMINO TRANSFERASE 17 U/L (14-36); BILIRUBIN,DIRECT 0.1 mg/dL (0.0-0.4); BILIRUBIN,TOTAL 0.5 mg/dL (0.2-1.3); BILIRUBIN,URINE NEGATIVE (NEGATIVE); BLOOD UREA NITROGEN 8 mg/dL (7-20); CALCIUM 9.8 mg/dL (8.4-10.2); CARBON DIOXIDE 28 mmol/L (22-30); CHLORIDE 104 mmol/L (98-107); COLOR,URINE YELLOW; GLUCOSE 94 mg/dL (75-110); GLUCOSE, URINE NEGATIVE (NEGATIVE); KETONES,URINE NEGATIVE (NEGATIVE); LEUKOCYTE ESTERASE,URINE NEGATIVE (NEGATIVE); NITRITE,URINE NEGATIVE (NEGATIVE); POTASSIUM 3.6 mmol/L (3.6-5.0); PROTEIN,URINE NEGATIVE (NEGATIVE); TOTAL PROTEIN 7.9 g/dL (6.3-8.2); URINE SPECIFIC GRAVITY 1.004; UROBILINOGEN,URINE NEGATIVE mg/dL (<2.0)
--- NOTE | 2019-02-01 00:40 | ER Document Report ---
ED General - General Chief Complaint: Shortness Of Breath Stated Complaint: SHORTNESS OF BREATH Time Seen by Provider: 01/31/19 22:02 Primary Care Provider: TYRONE VELASQUEZ JR, MD [Primary Care Provider] - Follow up tomorrow Mode of Arrival: Ambulatory Notes: 33-year-old female presents emergency department with complaints of feeling short of breath like she cannot get a good breath started tonight at approximately 2100. Patient is wearing a laboratory monitor that was placed by [facility]. She reports since November she has had episodes of syncope and severe chest pain. Denies chest pain tonight. Denies history of cardiac disease. Denies recent trip. Denies control at this point. Reports she used to take control pill but she quit taking that. Patient reports she w as just laying in bed when she had this sensation. She is speaking in a clear sentences no shortness of breath noted. She reports she is very active she dances 3 times a week and exercise class II hip hop [employer]. Denies trauma. TRAVEL OUTSIDE OF THE [place] IN LAST 30 DAYS: No - HPI Onset: Just prior to arrival Onset/Duration: Sudden Quality of pain: No pain Associated symptoms: None Exacerbated by: Denies Relieved by: Denies Similar symptoms previously: No Recently seen / treated by doctor: No - Related Data Allergies/Adverse Reactions: No Known Drug Allergies Allergy (Verified 02/06/17 11:00) Past Medical History - General Information source: Patient - Social History Smoking Status: Current Every Day Smoker Chew tobacco use (# tins/day): No Frequency of alcohol use: None Drug Abuse: None Lives with: Family Family History: Reviewed & Not Pertinent Patient has suicidal ideation: No Patient has homicidal ideation: No - Medical History Medical History: Negative - Past Medical History Cardiac Medical History: Denies: Hx Coronary Artery Disease, Hx Heart Attack, Hx Hypertension Pulmonary Medical History: Denies: Hx Asthma, Hx Bronchitis, Hx COPD, Hx Pneumonia Neurological Medical History: Denies: Hx Cerebrovascular Accident, Hx Seizures Renal/ Medical History: Denies: Hx Peritoneal Dialysis GI Medical History: Denies: Hx Hepatitis, Hx Hiatal Hernia, Hx Pancreatitis, Hx Ulcer Musculoskeletal Medical History: Denies Hx Arthritis Infectious Medical History: Denies: Hx Hepatitis Past Surgical History: Reports: Hx Cholecystectomy. Denies: Hx Hysterectomy, Hx Mastectomy, Hx Open Heart Surgery, Hx Pacemaker - Immunizations Hx Diphtheria, Pertussis, Tetanus Vaccination: No Review of Systems - Review of Systems Notes: Review HPI for review of systems., All other systems negative Physical Exam - Vital signs Vitals: Temp Pulse Resp BP Pulse Ox 97.8 F 59 L 18 130/69 H 100 01/31/19 21:43 01/31/19 21:43 01/31/19 21:43 01/31/19 21:43 01/31/19 21:43 - Notes Notes: PHYSICAL EXAMINATION: GENERAL: Well-appearing and in no acute distress HEAD: Atraumatic, normocephalic. EYES: Pupils equal round , extraocular movements intact, sclera anicteric, conjunctiva are normal. ENT: nares patent, . Moist mucous membranes. NECK: Normal range of motion, supple without lymphadenopathy LUNGS: CTAB and equal. No wheezes rales or rhonchi. HEART: Regular rate and rhythm without murmurs ABDOMEN: Soft, no tenderness. No guarding, no rebound EXTREMITIES: Normal range of motion, no pitting edema. No cyanosis. NEUROLOGICAL: Cranial nerves grossly intact. Normal sensory/motor exams. PSYCH: Normal mood, normal affect. SKIN: Warm, Dry, normal turgor, no rashes or lesions noted Course - Re-evaluation Re-evalutation: 02/01/19 00:38 This 33-year-old female presents emergency department with feeling short of breath. Reports that just started while she was laying in bed. Patient reports that she works out by dancing 3 times a week. Reports she does hip pop and Matias. Reports she used to be very overweight and thats how she lost weight. She has had no problems dancing. Labs unremarkable chest x-ray negative. Patient is wearing a laboratory monitor that was applied by the [facility]. Patient denies chest pain. Patient reports she is feeling wonderful now no problems does not feel short of breath. She was instructed on all r esults instructed to follow-up with her primary care provider at [facility] tomorrow. She verbalized understanding to all instructions. 01/31/19 23:00 01/31/19 23:00 MCV 91 fl (80-97) 01/31/19 23:00 MCH 31.3 pg (27.0-33.4) 01/31/19 23:00 MCHC 34.4 g/dL (32.0-36.0) 01/31/19 23:00 RDW 13.2 % (11.5-14.0) 01/31/19 23:00 Seg Neutrophils % 60.9 % (42-78) 01/31/19 23:00 Chloride 104 mmol/L (98-107) 01/31/19 23:00 Carbon Dioxide 28 mmol/L (22-30) 01/31/19 23:00 Anion Gap 8 (5-19) 01/31/19 23:00 Est GFR ( Amer) > 60 (>60) 01/31/19 23:00 Glucose 94 mg/dL (75-110) 01/31/19 23:00 Calcium 9.8 mg/dL (8.4-10.2) 01/31/19 23:00 Total Bilirubin 0.5 mg/dL (0.2-1.3) 01/31/19 23:00 AST 17 U/L (14-36) 01/31/19 23:00 Alkaline Phosphatase 55 U/L (38-126) 01/31/19 23:00 Total Protein 7.9 g/dL (6.3-8.2) 01/31/19 23:00 Albumin 4.4 g/dL (3.5-5.0) 01/31/19 23:00 Urine Color YELLOW 01/31/19 23:00 Urine Appearance CLEAR 01/31/19 23:00 Urine pH 7.0 (5.0-9.0) 01/31/19 23:00 Ur Specific Reyno 1.004 01/31/19 23:00 Urine Protein NEGATIVE mg/dL (NEGATIVE) 01/31/19 23:00 Urine Glucose (UA) NEGATIVE mg/dL (NEGATIVE) 01/31/19 23:00 Urine Ketones NEGATIVE mg/dL (NEGATIVE) 01/31/19 23:00 Urine Blood MODERATE (NEGATIVE) H 01/31/19 23:00 Urine Nitrite NEGATIVE (NEGATIVE) 01/31/19 23:00 Ur Leukocyte Esterase NEGATIVE (NEGATIVE) 01/31/19 23:00 Urine WBC (Auto) 1 /HPF 01/31/19 23:00 Urine RBC (Auto) 5 /HPF 01/31/19 23:00 Chest X-Ray 01/31/19 22:05 IMPRESSION: Negative chest copyright 2011 [employer]- All Rights Reserved 10/07/19 00:45 - Vital Signs Vital signs: Temp Pulse Resp BP Pulse Ox 97.8 F 59 L 18 130/69 H 100 01/31/19 21:43 01/31/19 21:43 01/31/19 21:43 01/31/19 21:43 01/31/19 21:43 - Laboratory Result Diagrams: 01/31/19 23:00 01/31/19 23:00 Laboratory results interpreted by me: 01/31/19 01/31/19 23:00 23:00 WBC 14.1 H Absolute Neuts (auto) 8.6 H Urine Blood MODERATE H - Diagnostic Test Radiology reviewed: Image reviewed, Reports reviewed - EKG Interpretation by Me EKG shows normal: Sinus rhythm Rate: Normal Rhythm: NSR Additional EKG results interpreted by me: 02/01/19 00:[address] elevation no T wave inversion Discharge - Discharge Clinical Impression: Shortness of breath Condition: Stable Disposition: HOME, SELF-CARE Additional Instructions: *You have been evaluated for shortness of breath *Quit Smoking *Monitor your temperature *Follow up with a primary care provider within one week *Return to ED for increasing fever, cough, worsening condition, changes, needs Monitor your blood pressure. Your blood pressure was elevated today. This may be because you were anxious, in pain or because you need medication. It is important to follow up with your primary care provider for full evaluation. Forms: Smoking Cessation Education Referrals: TYRONE VELASQUEZ JR, MD [Primary Care Provider] - Follow up tomorrow
[2019-02-01 01:07] VITALS: BP 100/48
--- NOTE | 2019-02-01 07:30 | EKG REPORT ---
SEVERITY:- NORMAL ECG - SINUS BRADYCARDIA : Confirmed by: Chapo Holm MD 01-Feb-2019 07:30:06
== END 2019-02-01 01:13 | disposition home or self-care (01) ==
LOC: ER 21:39
DX: R06.02 Shortness of breath (principal); F17.200 Nicotine dependence, unspecified, uncomplicated; Z90.49 Acquired absence of other specified parts of digestive tract
CPT/HCPCS: 36415; 71046; 80053; 81001; 81025; 85025; 93005; 93010; 99285

== ENCOUNTER 2019-02-12 13:01 | Emergency (ER) | payer OTHER ==
--- NOTE | 2019-02-12 13:11 | ER Document Report ---
ED Medical Screen (RME) - General Stated Complaint: RIGHT KNEE PAIN Time Seen by Provider: 02/12/19 13:09 Primary Care Provider: TYRONE VELASQUEZ JR, MD [Primary Care Provider] - Follow up as needed Notes: 33-year-old female presented to ED for right calf pain for the last 3 or so days. She states a month ago she took a long drive when her [id number] was injured but nothing recently. She states she just quit control that she been taking for 10 years and she does smoke. She states she is on a cardiac event monitor suggested to quit the control. Patient is alert oriented respirations regular nonlabored speaking in full sentences. I have greeted and performed a rapid initial assessment of this patient. A comprehensive ED assessment and evaluation of the patient, analysis of test results and completion of medical decision making process will be conducted by an additional ED providers. TRAVEL OUTSIDE OF THE [place] IN LAST 30 DAYS: No - Related Data Allergies/Adverse Reactions: No Known Drug Allergies Allergy (Verified 02/06/17 11:00) Past Medical History - Social History Family history: Other - gall bladder problems - Past Medical History Cardiac Medical History: Denies: Hx Coronary Artery Disease, Hx Heart Attack, Hx Hypertension Pulmonary Medical History: Denies: Hx Asthma, Hx Bronchitis, Hx COPD, Hx Pneumonia Neurological Medical History: Denies: Hx Cerebrovascular Accident, Hx Seizures Renal/ Medical History: Denies: Hx Peritoneal Dialysis GI Medical History: Denies: Hx Hepatitis, Hx Hiatal Hernia, Hx Pancreatitis, Hx Ulcer Musculoskeltal Medical History: Denies Hx Arthritis Infectious Medical History: Denies: Hx Hepatitis Past Surgical History: Reports: Hx Cholecystectomy. Denies: Hx Hysterectomy, Hx Mastectomy, Hx Open Heart Surgery, Hx Pacemaker - Immunizations Hx Diphtheria, Pertussis, Tetanus Vaccination: No Physical Exam - Vital signs Vitals: Temp Pulse Resp BP Pulse Ox 98.1 F 94 18 112/69 98 02/12/19 13:07 02/12/19 13:07 02/12/19 13:07 02/12/19 13:07 02/12/19 13:07 Course - Vital Signs Vital signs: Temp Pulse Resp BP Pulse Ox 98.1 F 94 18 112/69 98 02/12/19 13:07 02/12/19 13:07 02/12/19 13:07 02/12/19 13:07 02/12/19 13:07 Doctor's Discharge - Discharge Referrals: EVA QUIÑONEZ,TYRONE Woo MD [Primary Care Provider] - Follow up as needed
[2019-02-12 14:03] LABS: ABSOLUTE EOSINOPHILS # (AUTO) 0.1 10^3/uL (0.0-0.6); ABSOLUTE LYMPHOCYTES (AUTO) 2.4 10^3/uL (0.5-4.7); ABSOLUTE MONOCYTES (AUTO) 0.6 10^3/uL (0.1-1.4); ABSOLUTE NEUT (AUTO) 5.8 10^3/uL (1.7-8.2); BASOPHILS % (AUTO) 0.4 % (0-2); EOSINOPHILS % (AUTO) 0.6 % (0-6); HEMATOCRIT 43.1 % (36.0-47.0); HEMOGLOBIN 14.6 g/dL (12.0-15.5); LYMPHOCYTES % (AUTO) 27.5 % (13-45); MEAN CORPUSCULAR HEMOGLOBIN 30.9 pg (27.0-33.4); MEAN CORPUSCULAR HGB CONC 33.9 g/dL (32.0-36.0); MEAN CORPUSCULAR VOLUME 91 fl (80-97); MONOCYTES % (AUTO) 6.4 % (3-13); PLATELET COUNT 337 10^3/uL (150-450); RED BLOOD COUNT 4.73 10^6/uL (3.72-5.28); RED CELL DISTRIBUTION WIDTH 13.3 % (11.5-14.0); SEGMENTED NEUTROPHILS % (AUTO) 65.1 % (42-78); TOTAL CELLS COUNTED % (AUTO) 100 %; WHITE BLOOD COUNT 8.8 10^3/uL (4.0-10.5)
[2019-02-12 14:12] LABS: APPEARANCE,URINE SLIGHTLY-CLOUDY; BILIRUBIN,URINE NEGATIVE (NEGATIVE); COLOR,URINE YELLOW; GLUCOSE, URINE NEGATIVE (NEGATIVE); KETONES,URINE 20 mg/dL (NEGATIVE); PROTEIN,URINE NEGATIVE (NEGATIVE); URINE SPECIFIC GRAVITY 1.024
[2019-02-12 14:24] LABS: ALBUMIN 4.6 g/dL (3.5-5.0); ALKALINE PHOSPHATASE 58 U/L (38-126); ANION GAP 13 (5-19); ASPARTATE AMINO TRANSFERASE 29 U/L (14-36); BILIRUBIN,DIRECT 0.1 mg/dL (0.0-0.4); BILIRUBIN,TOTAL 1.2 mg/dL (0.2-1.3); BLOOD UREA NITROGEN 11 mg/dL (7-20); CALCIUM 9.7 mg/dL (8.4-10.2); CARBON DIOXIDE 24 mmol/L (22-30); CHLORIDE 104 mmol/L (98-107); CREATINE KINASE 175 U/L (30-135); GLUCOSE 94 mg/dL (75-110); TOTAL PROTEIN 8.2 g/dL (6.3-8.2)
--- NOTE | 2019-02-12 15:38 | RADIOLOGY REPORT (SQ) ---
EXAM DESCRIPTION: VENOUS UNILATERAL LOWER COMPLETED DATE/TIME: 02/12/2019 3:27 pm REASON FOR STUDY: Right calf pain and firmness COMPARISON: None. TECHNIQUE: Dynamic and static jaquez scale and color images acquired of the right leg venous system. S elected spectral images acquired with additional compression and augmentation maneuvers. The contrala teral common femoral vein and saphenofemoral junction were also imaged. Images stored on PACS. LIMITATIONS: None. FINDINGS: COMMON FEMORAL: Normal phasicity, compression and augmentation. No visualized echogenic ma terial on jaquez scale. No defects on color images. FEMORAL: Normal compression and augmentation. No visualized echogenic material on jaquez scale. No defe cts on color images. POPLITEAL: Normal compression, augmentation. No visualized echogenic material on jaquez scale. No defec ts on color images. CALF VESSELS: Normal compression, augmentation. No visualized echogenic material on jaquez scale. No de fects on color images. GSV and SSV: Normal compression, augmentation. No visualized echogenic material on jaquez scale. No def ects on color images. ANY DEEP VENOUS INSUFFICIENCY: Not evaluated. ANY EVIDENCE OF POPLITEAL CYST: No. OTHER: No other significant finding. CONTRALATERAL COMMON FEMORAL VEIN AND SAPHENOFEMORAL JUNCTION: Normal phasicity, compression and augmentation. No visualized echogenic material on jaquez scale. No de fects on color images. IMPRESSION: NO EVIDENCE OF DVT OR SVT IN THE RIGHT LEG. TECHNICAL DOCUMENTATION: JOB ID: [id number]- All Rights Reserved Reading location - IP/workstation name: [email or web address]
--- NOTE | 2019-02-12 16:24 | ER Document Report ---
HPI - HPI Patient complains to provider of: Right calf pain Time Seen by Provider: 02/12/19 13:09 Onset/Duration: Persistent Quality of pain: Achy Pain Level: 1 Context: Patient presents complaining of right calf pain for the past 3 days. Patient does report recent night muscle cramps to the right calf. Patient also reports having a long distance trip to [place] 1 month ago. Patient is no longer on any kind of oral contraceptive pills. Patient states she has had some pain with ambulation to the right calf. No chest pain or shortness of breath. Patient denies any previous history of DVT or PE. Associated Symptoms: Other - Right calf tenderness Exacerbated by: Movement, Walking Relieved by: Denies Similar symptoms previously: No Recently seen / treated by doctor: No - ROS ROS below otherwise negative: Yes Systems Reviewed and Negative: Yes All other systems reviewed and negative - CONSTITUTIONAL Constitutional: DENIES: Fever, Chills - EENT EENT: DENIES: Sore Throat, Ear Pain, Eye problems - CARDIOVASCULAR Cardiovascular: DENIES: Chest pain - RESPIRATORY Respiratory: DENIES: Trouble Breathing, Coughing - GASTROINTESTINAL Gastrointestinal: DENIES: Patient vomiting - REPRODUCTIVE LMP: 01/19/19 Reproductive: DENIES: : - MUSCULOSKELETAL Musculoskeletal: REPORTS: Extremity pain - right calf pain. 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 Lives with: Family Family History: Reviewed & Not Pertinent Patient has suicidal ideation: No Patient has homicidal ideation: No Renal/ Medical History: Denies: Hx Peritoneal Dialysis GI Medical History: Reports: Hx Gastroesophageal Reflux Disease Musculoskeletal Medical History: Denies Hx Arthritis Psychiatric Medical History: Reports: Hx Depression Infectious Medical History: Denies: Hx Hepatitis Past Surgical History: Reports: Hx Cholecystectomy - Immunizations Hx Diphtheria, Pertussis, Tetanus Vaccination: No Vertical Provider Document - CONSTITUTIONAL Agree With Documented VS: Yes Exam Limitations: No Limitations General Appearance: WD/WN, No Apparent Distress - INFECTION CONTROL TRAVEL OUTSIDE OF THE [place] IN LAST 30 DAYS: No - HEENT HEENT: Atraumatic, Normocephalic - NECK Neck: Normal Inspection - RESPIRATORY Respiratory: Breath Sounds Normal, No Respiratory Distress - CARDIOVASCULAR Cardiovascular: Regular Rate, Regular Rhythm Pulses: Normal: Posterior tibial, Dorsalis pedis - MUSCULOSKELETAL/EXTREMETIES Musculoskeletal/Extremeties: MAEW, FROM, Tender - right calf, No Edema Notes: Normal skin color and temperature to right calf, muscle compartments soft - NEURO Level of Consciousness: Awake, Alert, Appropriate Motor/Sensory: No Motor Deficit - DERM Integumentary: Warm, Dry, No Rash Course - Re-evaluation Re-evalutation: 02/12/19 16:22 Patient does report having night leg cramps recently. Patient with negative Doppler test and incidental elevated CK. Suspect likely muscle strain at this time. Patient does have incidental hematuria on urinalysis. Patient reports a history of hematuria in which she has been followed by both urology and nephrology for this finding. No concern for DVT at this time. Patient stable for discharge and is agreeable with discharge plan of care. - Vital Signs Vital signs: Temp Pulse Resp BP Pulse Ox 98.1 F 94 18 112/69 98 02/12/19 13:07 02/12/19 13:07 02/12/19 13:07 02/12/19 13:07 02/12/19 13:07 - Laboratory Result Diagrams: 02/12/19 13:40 02/12/19 13:40 Laboratory results interpreted by me: 02/12/19 02/12/19 13:40 13:50 Creatine Kinase 175 H Urine Ketones 20 H Urine Blood LARGE H Urine Urobilinogen 2.0 H 02/13/19 01:16 Labs- Entire Visit 02/12/19 02/12/19 02/12/19 13:40 13:40 13:40 WBC 8.8 RBC 4.73 Hgb 14.6 Hct 43.1 MCV 91 MCH 30.9 MCHC 33.9 RDW 13.3 Plt Count 337 Lymph % (Auto) 27.5 Cloud % (Auto) 6.4 Eos % (Auto) 0.6 Baso % (Auto) 0.4 Absolute Neuts (auto) 5.8 Absolute Lymphs (auto) 2.4 Absolute Monos (auto) 0.6 Absolute Eos (auto) 0.1 Absolute Basos (auto) 0.0 Seg Neutrophils % 65.1 Sodium 140.9 Potassium 4.0 Chloride 104 Carbon Dioxide 24 Anion Gap 13 BUN 11 Creatinine 0.83 Est GFR ( Amer) > 60 Est GFR (MDRD) Non-Af > 60 Glucose 94 Calcium 9.7 Total Bilirubin 1.2 Direct Bilirubin 0.1 Neonat Total Bilirubin Not Reportable Neonat Direct Bilirubin Not Reportable Neonat Indirect Bili Not Reportable AST 29 ALT 53 Alkaline Phosphatase 58 Creatine Kinase 175 H Total Protein 8.2 Albumin 4.6 Serum HCG, Qual NEGATIVE Urine Color Urine Appearance Urine pH Ur Specific [place] Urine Protein Urine Glucose (UA) Urine Ketones Urine Blood Urine Nitrite (Reflex) Urine Bilirubin Urine Urobilinogen Leukocyte Esterase Rfl Urine RBC (Auto) Urine WBC (Reflex) Squamous Epi Cells Auto Urine Mucus (Auto) Urine Ascorbic Acid 02/12/19 13:50 WBC RBC Hgb Hct MCV MCH MCHC RDW Plt Count Lymph % (Auto) [place] % (Auto) Eos % (Auto) Baso % (Auto) Absolute Neuts (auto) Absolute Lymphs (auto) Absolute Monos (auto) Absolute Eos (auto) Absolute Basos (auto) Seg Neutrophils % Sodium Potassium Chloride Carbon Dioxide Anion Gap BUN Creatinine Est GFR ( Amer) Est GFR (MDRD) Non-Af Glucose Calcium Total Bilirubin Direct Bilirubin Neonat Total Bilirubin Neonat Direct Bilirubin Neonat Indirect Bili AST ALT Alkaline Phosphatase Creatine Kinase Total Protein Albumin Serum HCG, Qual Urine Color YELLOW Urine Appearance SLIGHTLY-CLOUDY Urine pH 6.0 Ur Specific [place] 1.024 Urine Protein NEGATIVE Urine Glucose (UA) NEGATIVE Urine Ketones 20 H Urine Blood LARGE H Urine Nitrite (Reflex) NEGATIVE Urine Bilirubin NEGATIVE Urine Urobilinogen 2.0 H Leukocyte Esterase Rfl NEGATIVE Urine RBC (Auto) 74 Urine WBC (Reflex) 1 Squamous Epi Cells Auto 2 Urine Mucus (Auto) MANY Urine Ascorbic Acid NEGATIVE Discharge - Discharge Clinical Impression: Right leg pain, Muscle strain Condition: Stable Disposition: HOME, SELF-CARE Instructions: Muscle Relaxers ([facility]), Muscle Strain ([facility]) Additional Instructions: Return immediately for any new or worsening symptoms Followup with your primary care provider, call tomorrow to make a followup ap pointment Be sure to stay well-hydrated Prescriptions: Cyclobenzaprine HCl [Flexeril 10 Mg Tablet] 10 mg PO TID #15 tablet Naproxen [Naprosyn 250 Nmg Tablet] 1 tab PO BID #14 tablet Referrals: TYRONE VELASQUEZ JR, MD [Primary Care Provider] - Follow up as needed
[2019-02-12 16:54] VITALS: BP 98/62
== END 2019-02-12 16:54 | disposition home or self-care (01) ==
LOC: ER 13:01
DX: M79.661 Pain in right lower leg (principal); R25.2 Cramp and spasm; T14.8XXA Other injury of unspecified body region, initial encounter; X58.XXXA Exposure to other specified factors, initial encounter; R31.9 Hematuria, unspecified; R79.89 Other specified abnormal findings of blood chemistry; F32.9 Major depressive disorder, single episode, unspecified; Z79.899 Other long term (current) drug therapy
CPT/HCPCS: 36415; 80053; 81001; 82550; 84703; 85025; 93971; 99284

== ENCOUNTER 2019-02-12 18:01 | Emergency (ER) | payer OTHER ==
--- NOTE | 2019-02-12 18:45 | ER Document Report ---
ED Medical Screen (RME) - General Chief Complaint: Dizziness Stated Complaint: DIZZINESS/LIGHT HEADED Time Seen by Provider: 02/12/19 18:41 Primary Care Provider: TYRONE VELASQUEZ JR, MD [Primary Care Provider] - Follow up as needed Mode of Arrival: Ambulatory Information source: Patient Notes: 33-year-old female presented to ED for complaint of dizziness and nausea and vomiting. She states she was seen this morning for her leg pain went home and was not home a half an hour before she became very dizzy and nauseated and vomited. States she does have right upper quadrant abdominal pain but she does not have a gallbladder. It was removed in 2017. She states she did not pass out but she felt like she might. She is alert oriented respirations regular nonlabored speaking in full sentences. Patient states she has not eaten except for couple bites of banana since she was seen earlier and she has not taking anything for nausea. I have greeted and performed a rapid initial assessment of this patient. A comprehensive ED assessment and evaluation of the patient, analysis of test results and completion of medical decision making process will be conducted by an additional ED providers. TRAVEL OUTSIDE OF THE [place] IN LAST 30 DAYS: No - Related Data Allergies/Adverse Reactions: No Known Drug Allergies Allergy (Verified 02/06/17 11:00) Past Medical History - Social History Family history: Other - gall bladder problems - Past Medical History Cardiac Medical History: Denies: Hx Coronary Artery Disease, Hx Heart Attack, Hx Hypertension Pulmonary Medical History: Denies: Hx Asthma, Hx Bronchitis, Hx COPD, Hx Pneumonia Neurological Medical History: Denies: Hx Cerebrovascular Accident, Hx Seizures Renal/ Medical History: Denies: Hx Peritoneal Dialysis GI Medical History: Denies: Hx Hepatitis, Hx Hiatal Hernia, Hx Pancreatitis, Hx Ulcer Musculoskeltal Medical History: Denies Hx Arthritis Infectious Medical History: Denies: Hx Hepatitis Past Surgical History: Reports: Hx Cholecystectomy. Denies: Hx Hysterectomy, Hx Mastectomy, Hx Open Heart Surgery, Hx Pacemaker - Immunizations Hx Diphtheria, Pertussis, Tetanus Vaccination: No Physical Exam - Vital signs Vitals: Temp Pulse Resp BP Pulse Ox 97.5 F 61 18 115/70 99 02/12/19 18:35 02/12/19 18:35 02/12/19 18:35 02/12/19 18:35 02/12/19 18:35 Course - Vital Signs Vital signs: Temp Pulse Resp BP Pulse Ox 97.5 F 61 18 115/70 99 02/12/19 18:35 02/12/19 18:35 02/12/19 18:35 02/12/19 18:35 02/12/19 18:35 Doctor's Discharge - Discharge Referrals: TYRONE VELASQUEZ JR, MD [Primary Care Provider] - Follow up as needed
[2019-02-12] MEDS ORDERED: ONDANSETRON 4 MG TAB.RAPDIS PO ONE (18:46)
[2019-02-12 20:01] LABS: APPEARANCE,URINE CLEAR; BILIRUBIN,URINE NEGATIVE (NEGATIVE); COLOR,URINE YELLOW; GLUCOSE, URINE NEGATIVE (NEGATIVE); KETONES,URINE 20 mg/dL (NEGATIVE); PROTEIN,URINE NEGATIVE (NEGATIVE); URINE SPECIFIC GRAVITY 1.005; UROBILINOGEN,URINE NEGATIVE mg/dL (<2.0)
[2019-02-12 20:14] LABS: ABSOLUTE LYMPHOCYTES (AUTO) 2.7 10^3/uL (0.5-4.7); ABSOLUTE MONOCYTES (AUTO) 0.7 10^3/uL (0.1-1.4); ABSOLUTE NEUT (AUTO) 6.1 10^3/uL (1.7-8.2); BASOPHILS % (AUTO) 0.3 % (0-2); EOSINOPHILS % (AUTO) 0.4 % (0-6); HEMATOCRIT 40.7 % (36.0-47.0); HEMOGLOBIN 13.9 g/dL (12.0-15.5); LYMPHOCYTES % (AUTO) 28.6 % (13-45); MEAN CORPUSCULAR HEMOGLOBIN 31.3 pg (27.0-33.4); MEAN CORPUSCULAR HGB CONC 34.3 g/dL (32.0-36.0); MEAN CORPUSCULAR VOLUME 91 fl (80-97); MONOCYTES % (AUTO) 7.1 % (3-13); PLATELET COUNT 332 10^3/uL (150-450); RED BLOOD COUNT 4.46 10^6/uL (3.72-5.28); RED CELL DISTRIBUTION WIDTH 13.2 % (11.5-14.0); SEGMENTED NEUTROPHILS % (AUTO) 63.6 % (42-78); TOTAL CELLS COUNTED % (AUTO) 100 %; WHITE BLOOD COUNT 9.6 10^3/uL (4.0-10.5)
[2019-02-12 21:11] LABS: ALBUMIN 4.4 g/dL (3.5-5.0); ALKALINE PHOSPHATASE 52 U/L (38-126); ANION GAP 10 (5-19); ASPARTATE AMINO TRANSFERASE 28 U/L (14-36); BILIRUBIN,DIRECT 0.1 mg/dL (0.0-0.4); BILIRUBIN,TOTAL 0.9 mg/dL (0.2-1.3); BLOOD UREA NITROGEN 10 mg/dL (7-20); CALCIUM 9.4 mg/dL (8.4-10.2); CARBON DIOXIDE 25 mmol/L (22-30); CHLORIDE 104 mmol/L (98-107); GLUCOSE 96 mg/dL (75-110); POTASSIUM 3.9 mmol/L (3.6-5.0); TOTAL PROTEIN 7.8 g/dL (6.3-8.2)
[2019-02-12] MEDS ORDERED: MAG HYDROX/AL HYDROX/SIMETH SUSP 30 ML UDCUP PO ONE (23:18)
[2019-02-12] MEDS ORDERED: ONDANSETRON HCL INJ/PF 4 MG/2 ML SDV IV ONE (23:18)
[2019-02-12] MEDS ORDERED: LIDOCAINE 2% VISCOUS SOLN 20 ML UDCUP PO ONE (23:18)
[2019-02-12] MEDS ORDERED: NORMAL SALINE 1000 ML 1,000 ML IV ONE (23:18)
--- NOTE | 2019-02-12 23:20 | ER Document Report ---
ED General - General Mode of Arrival: Ambulatory Information source: Patient TRAVEL OUTSIDE OF THE [place] IN LAST 30 DAYS: No - HPI Onset: This evening Onset/Duration: Sudden Quality of pain: Achy Pain Level: 3 Associated symptoms: Nausea, Vomiting, Other - Abdominal pain. denies: Chest pain, Nonproductive cough, Productive cough, Diarrhea Exacerbated by: Denies Relieved by: Denies Similar symptoms previously: Yes Recently seen / treated by doctor: Yes - Related Data Home Medications: zoloft. omeprazole <MALACHI WELCH - Last Filed: 02/13/19 01:47> - General Mode of Arrival: Ambulatory Information source: Patient <HANNAH CRAIG - Last Filed: 02/13/19 04:24> - General Chief Complaint: Nausea/Vomiting Stated Complaint: DIZZINESS/LIGHT HEADED Time Seen by Provider: 02/12/19 18:41 Primary Care Provider: TYRONE VELASQUEZ JR, MD [Primary Care Provider] - Follow up as needed Notes: Patient states that she was discharged from the hospital earlier today after having right calf pain. Patient states that she became lightheaded had nausea and vomited 3 times and developed upper abdominal tenderness. Patient states that she episodes such as this for times now over the past 2 weeks. Patient does have an event recorder that she has been wearing due to having the symptoms. Patient without any chest pain or diarrhea. Patient denies any shortness of breath. Patient denies any headache pain. Patient states that this is typical of the events that she has been having over the past several weeks. Patient is being followed by agent as well as her primary doctor to further evaluate these episodes. 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 Denies: Hx Hepatitis, Hx Hiatal Hernia, Hx Pancreatitis, Hx Ulcer Musculoskeletal Medical History: Denies Hx Arthritis Psychiatric Medical History: Reports: Hx Depression Infectious Medical History: Denies: Hx Hepatitis Past Surgical History: Reports: Hx Cholecystectomy - Immunizations Hx Diphtheria, Pertussis, Tetanus Vaccination: No <MALACHI WELCH - Last Filed: 02/13/19 01:47> Review of Systems - Review of Systems Constitutional: No symptoms reported. denies: Fever EENT: No symptoms reported Cardiovascular: Lightheaded. denies: Chest pain Respiratory: No symptoms reported. denies: Cough, Short of breath Gastrointestinal: Abdominal pain, Nausea, Vomiting. denies: Diarrhea Genitourinary: No symptoms reported. denies: Dysuria Female Genitourinary: No symptoms reported Musculoskeletal: No symptoms reported Skin: No symptoms reported Hematologic/Lymphatic: No symptoms reported Neurological/Psychological: No symptoms reported <MALACHI WELCH - Last Filed: 02/13/19 01:47> Physical Exam - General General appearance: Appears well, Alert In distress: None - HEENT Head: Normocephalic, Atraumatic Eyes: Normal Conjunctiva: Normal Nasal: Normal Mouth/Lips: Normal Mucous membranes: Normal Neck: Normal, Supple. No: Lymphadenopathy - Respiratory Respiratory status: No respiratory distress Chest status: Nontender Breath sounds: Normal. No: Rales, Rhonchi, Stridor, Wheezing Chest palpation: Normal - Cardiovascular Rhythm: Regular. No: Tachycardia Heart sounds: S1 appreciated, S2 appreciated - Abdominal Inspection: Normal Distension: No distension Bowel sounds: Normal Tenderness: Tender - Right upper quadrant, left upper quadrant and epigastric tenderness. No: Guarding Organomegaly: No organomegaly - Back Back: Normal, Nontender. No: CVA tenderness - Extremities General upper extremity: Normal inspection, Normal ROM General lower extremity: Normal inspection, Normal ROM - Neurological Neuro grossly intact: Yes Cognition: Normal Perry Coma Scale Eye Opening: Spontaneous Perry Coma Scale Verbal: Oriented Trudi Coma Scale Motor: Obeys Commands Trudi Coma Scale Total: 15 - Psychological Associated symptoms: Normal affect, Normal mood - Skin Skin Temperature: Warm Skin Moisture: Dry Skin Color: Normal <MALACHI WELCH - Last Filed: 02/13/19 01:47> - Vital signs Vitals: Temp Pulse Resp BP Pulse Ox 97.5 F 61 18 115/70 99 02/12/19 18:35 02/12/19 18:35 02/12/19 18:35 02/12/19 18:35 02/12/19 18:35 Course - Laboratory Result Diagrams: 02/12/19 19:30 02/12/19 19:30 - EKG Interpretation by Me EKG shows normal: Sinus rhythm Rate: Bradycardia Rhythm: APC's <MALACHI WELCH - Last Filed: 02/13/19 01:47> - Laboratory Result Diagrams: 02/12/19 19:30 02/12/19 19:30 <HANNAH CRAIG - Last Filed: 02/13/19 04:24> - Re-evaluation Re-evalutation: 02/13/19 01:50 Patient continues with upper abdominal tenderness. Will add on abdominal imaging at this time. (MALACHI WELCH) - Vital Signs Vital signs: Temp Pulse Resp BP Pulse Ox 97.5 F 61 16 90/61 L 100 02/12/19 18:35 02/12/19 18:35 02/13/19 03:00 02/13/19 03:01 02/13/19 02:06 - Laboratory Laboratory results interpreted by pr: 02/12/19 18:47 Urine Ketones 20 H Urine Blood MODERATE H 02/13/19 01:49 Labs- Entire Visit 02/12/19 02/12/19 02/12/19 18:47 19:30 19:30 WBC 9.6 RBC 4.46 Hgb 13.9 Hct 40.7 MCV 91 MCH 31.3 MCHC 34.3 RDW 13.2 Plt Count 332 Lymph % (Auto) 28.6 [place] % (Auto) 7.1 Eos % (Auto) 0.4 Baso % (Auto) 0.3 Absolute Neuts (auto) 6.1 Absolute Lymphs (auto) 2.7 Absolute Monos (auto) 0.7 Absolute Eos (auto) 0.0 Absolute Basos (auto) 0.0 Seg Neutrophils % 63.6 D-Dimer Sodium 139.3 Potassium 3.9 Chloride 104 Carbon Dioxide 25 Anion Gap 10 BUN 10 Creatinine 0.77 Est GFR ( Amer) > 60 Est GFR (MDRD) Non-Af > 60 Glucose 96 Calcium 9.4 Total Bilirubin 0.9 Direct Bilirubin 0.1 Neonat Total Bilirubin Not Reportable Neonat Direct Bilirubin Not Reportable Neonat Indirect Bili Not Reportable AST 28 ALT 46 Alkaline Phosphatase 52 Troponin I Total Protein 7.8 Albumin 4.4 Lipase 53.7 TSH Urine Color YELLOW Urine Appearance CLEAR Urine pH 7.0 Ur Specific [place] 1.005 Urine Protein NEGATIVE Urine Glucose (UA) NEGATIVE Urine Ketones 20 H Urine Blood MODERATE H Urine Nitrite (Reflex) NEGATIVE Urine Bilirubin NEGATIVE Urine Urobilinogen NEGATIVE Leukocyte Esterase Rfl NEGATIVE Urine RBC (Auto) 11 Urine Bacteria (Auto) TRACE Urine WBC (Reflex) < 1 Squamous Epi Cells Auto 2 Urine Mucus (Auto) RARE Urine Ascorbic Acid NEGATIVE 02/12/19 02/12/19 02/12/19 19:30 19:30 19:30 WBC RBC Hgb Hct MCV MCH MCHC RDW Plt Count Lymph % (Auto) [place] % (Auto) Eos % (Auto) Baso % (Auto) Absolute Neuts (auto) Absolute Lymphs (auto) Absolute Monos (auto) Absolute Eos (auto) Absolute Basos (auto) Seg Neutrophils % D-Dimer 0.32 Sodium Potassium Chloride Carbon Dioxide Anion Gap BUN Creatinine Est GFR ( Amer) Est GFR (MDRD) Non-Af Glucose Calcium Total Bilirubin Direct Bilirubin Neonat Total Bilirubin Neonat Direct Bilirubin Neonat Indirect Bili AST ALT Alkaline Phosphatase Troponin I < 0.012 Total Protein Albumin Lipase TSH 0.64 Urine Color Urine Appearance Urine pH Ur Specific [place] Urine Protein Urine Glucose (UA) Urine Ketones Urine Blood Urine Nitrite (Reflex) Urine Bilirubin Urine Urobilinogen Leukocyte Esterase Rfl Urine RBC (Auto) Urine Bacteria (Auto) Urine WBC (Reflex) Squamous Epi Cells Auto Urine Mucus (Auto) Urine Ascorbic Acid (MALACHI WELCH) - EKG Interpretation by Me Additional EKG results interpreted by me: 02/13/19 01:[address] elevation, no T wave inversion, QTC 429 (MALACHI WELCH) Discharge <MALACHI WELCH - Last Filed: 02/13/19 01:47> <HANNAH CRAIG - Last Filed: 02/13/19 04:24> - Discharge Clinical Impression: Epigastric pain Nausea & vomiting Qualifiers: Vomiting type: unspecified Vomiting Intractability: unspecified Qualified Code(s): R11.2 - Nausea with vomiting, unspecified Condition: Stable Disposition: HOME, SELF-CARE Additional Instructions: Your work-up today was unremarkable. Your cardiac enzymes were negative. The imaging that was obtained of your abdomen was also unremarkable. It is unclear why you are having the nausea and vomiting however it does not seem to be caused by anything life-threatening at this time. Please follow-up with your primary care provider regarding today's visits. Return to the emergency department with any new or worsening symptoms. Prescriptions: Ondansetron [Zofran Odt 4 mg Tablet] 1 tab PO Q4H PRN #15 tab.rapdis PRN Reason: For Nausea/Vomiting Referrals: TYRONE VELASQUEZ JR, MD [Primary Care Provider] - Follow up as needed
--- NOTE | 2019-02-13 00:09 | RADIOLOGY REPORT (SQ) ---
EXAM: Acute abdomen series CLINICAL DATA: 33-year-old female with upper abdominal pain, dizziness and nausea and vomiting TECHNICAL DATA: Three x-ray images of the chest and abdomen were performed including a PA radiograph of the chest as well as supine and upright views of the abdomen. This study was performed on 02/12/2019 at 11:51 PM. Comparison: Prior chest x-ray performed on 01/31/2019. FINDINGS: The lungs are well expanded. The cardiac silhouette is within normal limits. There is no focal consolidation, pleural effusion or pneumothorax. The costophrenic sulci are clear. The bowel gas pattern is nonspecific and nonobstructive. There is no evidence of free air or significant air-fluid levels. No pathologic abdominal calcifications are identified. No focal soft tissue abnormalities are seen. There are surgical clips in the right upper quadrant consistent with prior cholecystectomy. IMPRESSION: 1. No evidence of acute intrathoracic disease.. 2. Nonspecific nonobstructive bowel gas pattern.
--- NOTE | 2019-02-13 04:02 | RADIOLOGY REPORT (SQ) ---
EXAM DESCRIPTION: [facility]: CT ABDOMEN PELVIS WITH IV CONTRAST CLINICAL HISTORY: 33 years Female; abd pain TECHNIQUE: CT of the abdomen and pelvis using intravenous contrast. All CT scans at this facility use dose modulation, iterative reconstruction, and/or weight based dosing when appropriate to reduce radiation dose to as low as reasonably achievable. COMPARISON: CT 09/13/2015 FINDINGS: Abdomen: Liver:No focal lesions. No intrahepatic ductal distention. Gallbladder: Surgically absent Pancreas:Within normal limits Spleen:Within normal limits Right kidney:No hydronephrosis. No focal lesion. Left kidney:No hydronephrosis. No focal lesion. Adrenal glands:Within normal limits Vascular structures:Within normal limits Pelvis: Small bowel:No significant distention. Appendix:Within normal limits Colon:No distention or acute pericolonic edema. No free intraperitoneal fluid or air. Bones: No acute bone findings. Bladder: Unremarkable. Uterus is unremarkable. No adnexal enlargement. No acute pelvic edema. IMPRESSION: 1. No acute findings 2. Previous cholecystectomy
[2019-02-13 04:32] VITALS: BP 99/66
--- NOTE | 2019-02-14 00:24 | EKG REPORT ---
SEVERITY:- OTHERWISE NORMAL ECG - SINUS RHYTHM ATRIAL PREMATURE COMPLEX : Confirmed by: Deandre Joyce 14-Feb-2019 00:23:21
== END 2019-02-13 04:44 | disposition home or self-care (01) ==
LOC: ER 18:01
DX: R11.2 Nausea with vomiting, unspecified (principal); R10.13 Epigastric pain; R10.811 Right upper quadrant abdominal tenderness; R10.812 Left upper quadrant abdominal tenderness; R10.816 Epigastric abdominal tenderness; I49.1 Atrial premature depolarization; R42 Dizziness and giddiness; F17.200 Nicotine dependence, unspecified, uncomplicated; Z90.49 Acquired absence of other specified parts of digestive tract; Z87.19 Personal history of other diseases of the digestive system
CPT/HCPCS: 93005; 36415; 83690; 84443; 87070; 81001; 84484; 85379; 74022; 74177; 93010; J3490; J2405; J7030; 96361; 96374; 99284

== ENCOUNTER 2019-03-10 00:29 | Emergency (ER) | payer OTHER ==
--- NOTE | 2019-03-10 00:52 | ER Document Report ---
ED General - General Chief Complaint: Cough Stated Complaint: BODYACHE Time Seen by Provider: 03/10/19 00:51 Primary Care Provider: TYRONE VELASQUEZ JR, MD [Primary Care Provider] - Follow up as needed Notes: Patient is a 33-year-old female that comes emergency department for chief complaint of a fullness sensation in her neck that is worsening over the past couple of weeks and is starting to become irritating and noticeable. She also states that she has had a cough for the past 3 weeks that has not resolved. She states she has some sweats at night, occasional palpitations but she denies pain in her chest or difficulty breathing. She denies difficulty swallowing, sore throat, fever. She smokes, she is treated for GERD and with Zoloft, she states she also initiated a fertility work-up and they told her her thyroid screening hormone was off and this will be rechecked. She denies recreational drugs, she denies medical history otherwise. TRAVEL OUTSIDE OF THE [place] IN LAST 30 DAYS: No - Related Data Allergies/Adverse Reactions: No Known Drug Allergies Allergy (Verified 03/10/19 00:31) Past Medical History - General Information source: Patient - Social History Smoking Status: Current Every Day Smoker Chew tobacco use (# tins/day): No Smoking Education Provided: Yes - <3 min Frequency of alcohol use: None Drug Abuse: None Lives with: Family Family History: Reviewed & Not Pertinent Patient has suicidal ideation: No Patient has homicidal ideation: No - Past Medical History Cardiac Medical History: Denies: Hx Coronary Artery Disease, Hx Heart Attack, Hx Hypertension Pulmonary Medical History: Denies: Hx Asthma, Hx Bronchitis, Hx COPD, Hx Pneumonia Neurological Medical History: Denies: Hx Cerebrovascular Accident, Hx Seizures Renal/ Medical History: Denies: Hx Peritoneal Dialysis GI Medical History: Reports: Hx Gastroesophageal Reflux Disease. Denies: Hx Hepatitis, Hx Hiatal Hernia, Hx Pancreatitis, Hx Ulcer Musculoskeletal Medical History: Denies Hx Arthritis Psychiatric Medical History: Reports: Hx Depression Infectious Medical History: Denies: Hx Hepatitis Past Surgical History: Reports: Hx Cholecystectomy. Denies: Hx Hysterectomy, Hx Mastectomy, Hx Open Heart Surgery, Hx Pacemaker - Immunizations Hx Diphtheria, Pertussis, Tetanus Vaccination: Yes Review of Systems - Review of Systems Constitutional: See HPI EENT: See HPI Cardiovascular: No symptoms reported Respiratory: See HPI Gastrointestinal: No symptoms reported Genitourinary: No symptoms reported Female Genitourinary: No symptoms reported Musculoskeletal: No symptoms reported Skin: No symptoms reported Hematologic/Lymphatic: No symptoms reported Neurological/Psychological: No symptoms reported Physical Exam - Vital signs Vitals: Temp Pulse Resp BP Pulse Ox 97.4 F 91 18 118/78 99 03/10/19 00:31 03/10/19 00:31 03/10/19 00:31 03/10/19 00:03/10/19 00:31 - Notes Notes: GENERAL: Alert, interacts well. No acute distress. HEAD: Normocephalic, atraumatic. EYES: Pupils equal, round, and reactive to light. Extraocular movements intact. ENT: Oral mucosa moist, tongue midline. Oropharynx unremarkable. Airway patent. Nares patent, no nasal septal hematoma, TM's intact. NECK: Full range of motion. Supple. Trachea midline. Patient's thyroid exam is actually abnormal, there appears to be a nodular is nontender on the right. No lymphadenopathy noted. LUNGS: Clear to auscultation bilaterally, no wheezes, rales, or rhonchi. No respiratory distress. HEART: Regular rate and rhythm. No murmur ABDOMEN: Soft, non-tender. Non-distended. EXTREMITIES: Moves all 4 extremities spontaneously. No edema, normal radial and dorsalis pedis pulses bilaterally. No cyanosis. BACK: no cervical, thoracic, lumbar midline tenderness. No saddle anesthesia, normal distal neurovascular exam. Moves all extremities in full range of motion. NEUROLOGICAL: Alert and oriented x3. Normal speech. Cranial nerves II through XII grossly intact. PSYCH: Normal affect, normal mood. SKIN: Warm, dry, normal turgor. No rashes or lesions noted. Course - Re-evaluation Re-evalutation: CBC and chemistry completely unremarkable. hCG negative. Chest x-ray clear. Patient with clear lungs and no cough. Patient has had a TSH from fertility work-up within the past month. Thyroid ultrasound performed because of abnormal exam, this confirms right sided thyroid nodule. Discussed at length with patient, she has good primary care followup for additional evaluation, gave report and CD for this. Bronchitis reported appears to have resolved with no concerning findings on her physical exam in regards to this, no treatment required at this time. Patient states appreciation and agreement with plan and instructions. - Vital Signs Vital signs: Temp Pulse Resp BP Pulse Ox 97.5 F 74 16 130/78 H 100 03/10/19 02:57 03/10/19 02:57 03/10/19 02:57 03/10/19 02:57 03/10/19 02:57 - Laboratory Result Diagrams: 03/10/19 01:40 03/10/19 01:40 Laboratory results interpreted by me: 03/10/19 01:40 WBC 13.2 H Absolute Lymphs (auto) 4.8 H - EKG Interpretation by Me Additional EKG results interpreted by me: EKG shows sinus rhythm at a rate of 86, QTC of 455, normal axis, no T wave inversions or ST segment changes in consecutive leads Discharge - Discharge Clinical Impression: Neck symptoms, Thyroid nodule, Cough Condition: Stable Disposition: HOME, SELF-CARE Additional Instructions: Your evaluation does not show any concerning findings except for a thyroid nodule which was noted on exam and confirmed on ultrasound. Please follow close with your provider for additional evaluation of this. Do not delay because this this could be cancer that would be missed if this is not followed up. Return for any concerning symptoms including fever, difficulty breathing, or any other concerning or worsening symptoms. Forms: Smoking Cessation Education Referrals: TYRONE VELASQUEZ JR, MD [Primary Care Provider] - Follow up as needed
[2019-03-10 01:49] LABS: ABSOLUTE BASOPHILS # (AUTO) 0.1 10^3/uL (0.0-0.2); ABSOLUTE EOSINOPHILS # (AUTO) 0.1 10^3/uL (0.0-0.6); ABSOLUTE LYMPHOCYTES (AUTO) 4.8 10^3/uL (0.5-4.7); ABSOLUTE MONOCYTES (AUTO) 0.9 10^3/uL (0.1-1.4); ABSOLUTE NEUT (AUTO) 7.3 10^3/uL (1.7-8.2); BASOPHILS % (AUTO) 0.6 % (0-2); EOSINOPHILS % (AUTO) 0.7 % (0-6); HEMATOCRIT 38.9 % (36.0-47.0); HEMOGLOBIN 13.5 g/dL (12.0-15.5); LYMPHOCYTES % (AUTO) 36.7 % (13-45); MEAN CORPUSCULAR HEMOGLOBIN 31.3 pg (27.0-33.4); MEAN CORPUSCULAR HGB CONC 34.8 g/dL (32.0-36.0); MEAN CORPUSCULAR VOLUME 90 fl (80-97); MONOCYTES % (AUTO) 7.1 % (3-13); PLATELET COUNT 398 10^3/uL (150-450); RED BLOOD COUNT 4.32 10^6/uL (3.72-5.28); RED CELL DISTRIBUTION WIDTH 13.2 % (11.5-14.0); SEGMENTED NEUTROPHILS % (AUTO) 54.9 % (42-78); TOTAL CELLS COUNTED % (AUTO) 100 %; WHITE BLOOD COUNT 13.2 10^3/uL (4.0-10.5)
[2019-03-10 02:07] LABS: ALBUMIN 4.1 g/dL (3.5-5.0); ALKALINE PHOSPHATASE 76 U/L (38-126); ANION GAP 10 (5-19); ASPARTATE AMINO TRANSFERASE 21 U/L (14-36); BILIRUBIN,DIRECT 0.2 mg/dL (0.0-0.4); BILIRUBIN,TOTAL 0.6 mg/dL (0.2-1.3); BLOOD UREA NITROGEN 10 mg/dL (7-20); CALCIUM 9.1 mg/dL (8.4-10.2); CARBON DIOXIDE 24 mmol/L (22-30); CHLORIDE 107 mmol/L (98-107); GLUCOSE 98 mg/dL (75-110); POTASSIUM 3.7 mmol/L (3.6-5.0); TOTAL PROTEIN 7.7 g/dL (6.3-8.2)
--- NOTE | 2019-03-10 02:21 | RADIOLOGY REPORT (SQ) ---
EXAM DESCRIPTION: XR CHEST 2 VIEWS COMPLETED DATE/TME: 03/10/2019 01:00 CLINICAL HISTORY: cough x 3 weeks, night sweats COMPARISON: 01/31/2019 FINDINGS: Frontal and lateral views of the chest. Cardiomediastinal silhouette: Normal size and contour. Lungs: No consolidation, pneumothorax, or pleural effusion. Bones: No acute osseous abnormality. Upper abdomen: Prior cholecystectomy. IMPRESSION: 1. No acute pulmonary process identified.
--- NOTE | 2019-03-10 02:48 | RADIOLOGY REPORT (SQ) ---
CLINICAL HISTORY: neck fullness COMPARISON: None. TECHNIQUE: US HEAD NECK SOFT TISSUE on 03/10/2019 1:00 AM [employer] FINDINGS: The right thyroid lobe measures 4.8 x 1.6 x 1.0 cm and is homogeneous. There is a small periisthmic 7.5 mm hypoechoic nodule. Left lobe measures 4.1 x 2.1 x 1.3 cm and is normal in echotexture. The isthmus measures 2 mm. IMPRESSION: Subcentimeter right thyroid nodule. Otherwise unremarkable study.
[2019-03-10 02:59] VITALS: BP 130/78
--- NOTE | 2019-03-10 11:09 | EKG REPORT ---
SEVERITY:- NORMAL ECG - SINUS RHYTHM : Confirmed by: Hailee Jennings MD 10-Mar-2019 11:08:23
== END 2019-03-10 03:51 | disposition home or self-care (01) ==
LOC: ER 00:29
DX: E04.1 Nontoxic single thyroid nodule (principal); R05 Cough; F17.200 Nicotine dependence, unspecified, uncomplicated
CPT/HCPCS: 36415; 71046; 76536; 80053; 84703; 85025; 93005; 93010; 99284

== ENCOUNTER 2019-03-10 20:26 | Emergency (ER) | payer OTHER ==
--- NOTE | 2019-03-10 20:36 | ER Document Report ---
ED Medical Screen (RME) - General Stated Complaint: VAGINAL BLEEDING Time Seen by Provider: 03/10/19 20:32 Primary Care Provider: TYRONE VELASQUEZ JR, MD [Primary Care Provider] - Follow up as needed Mode of Arrival: Ambulatory Information source: Patient Notes: Patient returns emergency department for the second time today with reports of severe vaginal bleeding. Reports she has been on her menses for the past 4 days. Reports she is changed super tampon once an hour every hour. She reports she was seen earlier today and discharged with a diagnosis of a thyroid nodule. She returns because the bleeding is more severe. hCG was negative this morning. She reports she usually has her menses for 5 days and is never this severe. I have greeted and performed a rapid initial assessment of this patient. A comprehensive ED assessment and evaluation of the patient, analysis of test results and completion of the medical decision making process will be conducted by additional ED providers. Dictation of this chart was performed using voice recognition software; therefore, there may be some unintended grammatical errors. TRAVEL OUTSIDE OF THE [place] IN LAST 30 DAYS: No - Related Data Allergies/Adverse Reactions: No Known Drug Allergies Allergy (Verified 03/10/19 00:31) Past Medical History - Social History Family history: Other - gall bladder problems - Past Medical History Cardiac Medical History: Denies: Hx Coronary Artery Disease, Hx Heart Attack, Hx Hypertension Pulmonary Medical History: Denies: Hx Asthma, Hx Bronchitis, Hx COPD, Hx Pneumonia Neurological Medical History: Denies: Hx Cerebrovascular Accident, Hx Seizures Renal/ Medical History: Denies: Hx Peritoneal Dialysis GI Medical History: Reports: Hx Gastroesophageal Reflux Disease. Denies: Hx Hepatitis, Hx Hiatal Hernia, Hx Pancreatitis, Hx Ulcer Musculoskeltal Medical History: Denies Hx Arthritis Psychiatric Medical History: Reports: Hx Depression Infectious Medical History: Denies: Hx Hepatitis Past Surgical History: Reports: Hx Cholecystectomy. Denies: Hx Hysterectomy, Hx Mastectomy, Hx Open Heart Surgery, Hx Pacemaker - Immunizations Hx Diphtheria, Pertussis, Tetanus Vaccination: Yes Physical Exam - Vital signs Vitals: Temp Pulse Resp BP Pulse Ox 98.0 F 75 18 120/75 100 03/10/19 20:31 03/10/19 20:31 03/10/19 20:31 03/10/19 20:31 03/10/19 20:31 Course - Vital Signs Vital signs: Temp Pulse Resp BP Pulse Ox 98.0 F 75 18 120/75 100 03/10/19 20:31 03/10/19 20:31 03/10/19 20:31 03/10/19 20:31 03/10/19 20:31 Doctor's Discharge - Discharge Referrals: TYRONE VELASQUEZ JR, MD [Primary Care Provider] - Follow up as needed
[2019-03-10 21:02] LABS: ABSOLUTE BASOPHILS # (AUTO) 0.1 10^3/uL (0.0-0.2); ABSOLUTE EOSINOPHILS # (AUTO) 0.1 10^3/uL (0.0-0.6); ABSOLUTE LYMPHOCYTES (AUTO) 4.2 10^3/uL (0.5-4.7); ABSOLUTE MONOCYTES (AUTO) 0.8 10^3/uL (0.1-1.4); ABSOLUTE NEUT (AUTO) 7.5 10^3/uL (1.7-8.2); BASOPHILS % (AUTO) 0.4 % (0-2); EOSINOPHILS % (AUTO) 0.7 % (0-6); HEMOGLOBIN 14.3 g/dL (12.0-15.5); LYMPHOCYTES % (AUTO) 33.5 % (13-45); MEAN CORPUSCULAR HEMOGLOBIN 32.2 pg (27.0-33.4); MEAN CORPUSCULAR HGB CONC 35.8 g/dL (32.0-36.0); MEAN CORPUSCULAR VOLUME 90 fl (80-97); MONOCYTES % (AUTO) 6.3 % (3-13); PLATELET COUNT 405 10^3/uL (150-450); RED BLOOD COUNT 4.43 10^6/uL (3.72-5.28); RED CELL DISTRIBUTION WIDTH 13.3 % (11.5-14.0); SEGMENTED NEUTROPHILS % (AUTO) 59.1 % (42-78); TOTAL CELLS COUNTED % (AUTO) 100 %; WHITE BLOOD COUNT 12.6 10^3/uL (4.0-10.5)
[2019-03-10 21:13] LABS: ALBUMIN 4.5 g/dL (3.5-5.0); ALKALINE PHOSPHATASE 77 U/L (38-126); ANION GAP 12 (5-19); ASPARTATE AMINO TRANSFERASE 22 U/L (14-36); BILIRUBIN,DIRECT 0.2 mg/dL (0.0-0.4); BILIRUBIN,TOTAL 0.8 mg/dL (0.2-1.3); BLOOD UREA NITROGEN 7 mg/dL (7-20); CALCIUM 9.5 mg/dL (8.4-10.2); CARBON DIOXIDE 24 mmol/L (22-30); CHLORIDE 108 mmol/L (98-107); GLUCOSE 97 mg/dL (75-110); POTASSIUM 3.6 mmol/L (3.6-5.0)
--- NOTE | 2019-03-10 21:44 | ER Document Report ---
ED General - General Chief Complaint: Vaginal Bleeding Stated Complaint: VAGINAL BLEEDING Time Seen by Provider: 03/10/19 20:32 Primary Care Provider: TYRONE VELASQUEZ JR, MD [Primary Care Provider] - Follow up as needed Mode of Arrival: Ambulatory TRAVEL OUTSIDE OF THE [place] IN LAST 30 DAYS: No - HPI Patient complains to provider of: vaginal bleeding Notes: 33 y/o presenting to ED for evaluation of heavy vaginal bleeding she was seen in the ED within the last 24 hours and had a neg test her LMP was approximately 2-3 weeks ago denies fever or chills she reports saturating tampons in 1-2 hours for the last 6 hours and is concerned she is anemic - Related Data Allergies/Adverse Reactions: No Known Drug Allergies Allergy (Verified 03/10/19 00:31) Past Medical History - General Information source: Patient - Social History Smoking Status: Current Every Day Smoker Chew tobacco use (# tins/day): No Family History: Reviewed & Not Pertinent Patient has suicidal ideation: No Patient has homicidal ideation: No - Past Medical History Cardiac Medical History: Denies: Hx Coronary Artery Disease, Hx Heart Attack, Hx Hypertension Pulmonary Medical History: Denies: Hx Asthma, Hx Bronchitis, Hx COPD, Hx Pneumonia Neurological Medical History: Denies: Hx Cerebrovascular Accident, Hx Seizures Renal/ Medical History: Denies: Hx Peritoneal Dialysis GI Medical History: Reports: Hx Gastroesophageal Reflux Disease. Denies: Hx Hepatitis, Hx Hiatal Hernia, Hx Pancreatitis, Hx Ulcer Musculoskeletal Medical History: Denies Hx Arthritis Psychiatric Medical History: Reports: Hx Depression Infectious Medical History: Denies: Hx Hepatitis Past Surgical History: Reports: Hx Cholecystectomy. Denies: Hx Hysterectomy, Hx Mastectomy, Hx Open Heart Surgery, Hx Pacemaker - Immunizations Hx Diphtheria, Pertussis, Tetanus Vaccination: Yes Review of Systems - Review of Systems Constitutional: No symptoms reported EENT: No symptoms reported Cardiovascular: No symptoms reported Respiratory: No symptoms reported Gastrointestinal: No symptoms reported Genitourinary: No symptoms reported Female Genitourinary: Vaginal bleeding Musculoskeletal: No symptoms reported Skin: No symptoms reported Hematologic/Lymphatic: No symptoms reported Neurological/Psychological: No symptoms reported Physical Exam - Vital signs Vitals: Temp Pulse Resp BP Pulse Ox 98.0 F 75 18 120/75 100 03/10/19 20:31 03/10/19 20:31 03/10/19 20:31 03/10/19 20:31 03/10/19 20:31 Interpretation: Normal - General General appearance: Appears well, Alert - HEENT Head: Normocephalic, Atraumatic Eyes: Normal Pupils: PERRL - Respiratory Respiratory status: No respiratory distress Chest status: Nontender Breath sounds: Normal Chest palpation: Normal - Cardiovascular Rhythm: Regular Heart sounds: Normal auscultation Murmur: No - Abdominal Inspection: Normal Distension: No distension Bowel sounds: Normal Tenderness: Nontender Organomegaly: No organomegaly - Back Back: Normal, Nontender - Extremities General upper extremity: Normal inspection, Nontender, Normal color, Normal ROM, Normal temperature General lower extremity: Normal inspection, Nontender, Normal color, Normal ROM, Normal temperature, Normal weight bearing. No: Sally's sign - Neurological Neuro grossly intact: Yes Cognition: Normal Orientation: AAOx4 Trudi Coma Scale Eye Opening: Spontaneous [place] Coma Scale Verbal: Oriented Trudi Coma Scale Motor: Obeys Commands [place] Coma Scale Total: 15 Speech: Normal Motor strength normal: LUE, RUE, LLE, RLE Sensory: Normal - Psychological Associated symptoms: Normal affect, Normal mood - Skin Skin Temperature: Warm Skin Moisture: Dry Skin Color: Normal Course - Re-evaluation Re-evalutation: 03/10/19 22:04 patient not anemic or offered hormonal options to slow bleeding and she declined she was reassured that her hemoglobin was OK - Vital Signs Vital signs: Temp Pulse Resp BP Pulse Ox 98.0 F 75 18 120/75 100 03/10/19 20:31 03/10/19 20:31 03/10/19 20:31 03/10/19 20:31 03/10/19 20:31 - Laboratory Result Diagrams: 03/10/19 20:40 03/10/19 20:40 Laboratory results interpreted by me: 03/10/19 03/10/19 20:40 20:40 WBC 12.6 H Chloride 108 H Discharge - Discharge Clinical Impression: Dysfunctional uterine bleeding Condition: Stable Disposition: HOME, SELF-CARE Instructions: Vaginal Bleeding ([facility]) Additional Instructions: follow up with pcp as an outpatient return to the ED with worsening Referrals: EVA QUIÑONEZ,TYRONE Woo MD [Primary Care Provider] - Follow up as needed
[2019-03-10 22:27] VITALS: BP 113/79
== END 2019-03-10 22:22 | disposition home or self-care (01) ==
LOC: ER 20:26
DX: N93.8 Other specified abnormal uterine and vaginal bleeding (principal); F17.200 Nicotine dependence, unspecified, uncomplicated
CPT/HCPCS: 36415; 87070

== ENCOUNTER 2019-03-13 01:38 | Emergency (ER) | payer OTHER ==
[2019-03-13] MEDS ORDERED: LORAZEPAM 1 MG TABLET PO ONE (03:44)
[2019-03-13] MEDS ORDERED: ASPIRIN 325 MG TABLET PO ONE (03:44)
--- NOTE | 2019-03-13 04:17 | RADIOLOGY REPORT (SQ) ---
EXAM DESCRIPTION: XR CHEST 1 VIEW COMPLETED DATE/TME: 03/13/2019 03:44 CLINICAL HISTORY: CP COMPARISON: 03/10/2019 FINDINGS: Single frontal view of the chest. Cardiomediastinal silhouette: Normal size and contour. Lungs: No pneumothorax or large effusion. Hazy left basilar opacity. Bones: No acute osseous abnormality. Upper abdomen: No abnormality identified. IMPRESSION: 1. Interval development of hazy left basilar opacity. This may represent overlying soft tissues however lingular pneumonic process could produce a similar appearance. 2 view chest could provide additional characterization.
[2019-03-13 04:27] LABS: ABSOLUTE BASOPHILS # (AUTO) 0.1 10^3/uL (0.0-0.2); ABSOLUTE EOSINOPHILS # (AUTO) 0.1 10^3/uL (0.0-0.6); ABSOLUTE LYMPHOCYTES (AUTO) 4.9 10^3/uL (0.5-4.7); ABSOLUTE MONOCYTES (AUTO) 0.9 10^3/uL (0.1-1.4); ABSOLUTE NEUT (AUTO) 7.6 10^3/uL (1.7-8.2); BASOPHILS % (AUTO) 0.7 % (0-2); HEMATOCRIT 38.3 % (36.0-47.0); HEMOGLOBIN 13.1 g/dL (12.0-15.5); LYMPHOCYTES % (AUTO) 35.9 % (13-45); MEAN CORPUSCULAR HEMOGLOBIN 31.4 pg (27.0-33.4); MEAN CORPUSCULAR HGB CONC 34.4 g/dL (32.0-36.0); MEAN CORPUSCULAR VOLUME 91 fl (80-97); MONOCYTES % (AUTO) 6.6 % (3-13); PLATELET COUNT 372 10^3/uL (150-450); RED BLOOD COUNT 4.19 10^6/uL (3.72-5.28); RED CELL DISTRIBUTION WIDTH 13.4 % (11.5-14.0); SEGMENTED NEUTROPHILS % (AUTO) 55.8 % (42-78); TOTAL CELLS COUNTED % (AUTO) 100 %; WHITE BLOOD COUNT 13.7 10^3/uL (4.0-10.5)
[2019-03-13 04:34] LABS: APPEARANCE,URINE CLEAR; BILIRUBIN,URINE NEGATIVE (NEGATIVE); COLOR,URINE COLORLESS; GLUCOSE, URINE NEGATIVE (NEGATIVE); KETONES,URINE NEGATIVE (NEGATIVE); LEUKOCYTE ESTERASE,URINE NEGATIVE (NEGATIVE); NITRITE,URINE NEGATIVE (NEGATIVE); PROTEIN,URINE NEGATIVE (NEGATIVE); URINE SPECIFIC GRAVITY 1.002; UROBILINOGEN,URINE NEGATIVE mg/dL (<2.0)
[2019-03-13 04:55] LABS: ALBUMIN 4.2 g/dL (3.5-5.0); ALKALINE PHOSPHATASE 81 U/L (38-126); ANION GAP 9 (5-19); ASPARTATE AMINO TRANSFERASE 23 U/L (14-36); BILIRUBIN,DIRECT 0.1 mg/dL (0.0-0.4); BILIRUBIN,TOTAL 0.7 mg/dL (0.2-1.3); BLOOD UREA NITROGEN 10 mg/dL (7-20); CALCIUM 9.1 mg/dL (8.4-10.2); CARBON DIOXIDE 25 mmol/L (22-30); CHLORIDE 107 mmol/L (98-107); GLUCOSE 94 mg/dL (75-110); TOTAL PROTEIN 7.7 g/dL (6.3-8.2)
--- NOTE | 2019-03-13 05:18 | RADIOLOGY REPORT (SQ) ---
EXAM DESCRIPTION: XR CHEST 1 VIEW COMPLETED DATE/TME: 03/13/2019 04:42 CLINICAL HISTORY: lateral please COMPARISON: 03/13/2019. FINDINGS: Single lateral view of the chest. Cardiomediastinal silhouette: Normal size and contour. Lungs: Previously identified left opacity not well identified on this study suggesting overlying soft tissues. No pleural effusion. Bones: No acute osseous abnormality. Upper abdomen: No abnormality identified. IMPRESSION: 1. Previously identified opacity overlying the left lung base is compatible with overlying soft tissues. No pneumonic process identified.
--- NOTE | 2019-03-13 07:39 | ER Document Report ---
ED General - General Chief Complaint: Irregular Pulse Stated Complaint: CHEST PAIN Time Seen by Provider: 03/13/19 03:13 Primary Care Provider: TYRONE VELASQUEZ JR, MD [Primary Care Provider] - Follow up as needed Notes: 33-year-old female presents to the emergency department for generalized chest pain. States she feels as though there is a heaviness in the center of her chest that is nonradiating. States she also feels "restless". States she was recently diagnosed with a nodule on her thyroid. Is concerned about that and feels as though potentially her thyroid is "out of control." Patient voices the chest pain and heaviness is "different" from her typical anxiety. Patient's denying cough congestion, fevers, abdominal pain, dysuria, shortness of breath. TRAVEL OUTSIDE OF THE [place] IN LAST 30 DAYS: No - Related Data Allergies/Adverse Reactions: No Known Drug Allergies Allergy (Verified 03/10/19 00:31) Home Medications: zoloft, omeprazole Past Medical History - General Information source: Patient - Social History Smoking Status: Current Every Day Smoker Family History: Reviewed & Not Pertinent Patient has suicidal ideation: No Patient has homicidal ideation: No - Past Medical History Cardiac Medical History: Denies: Hx Coronary Artery Disease, Hx Heart Attack, Hx Hypertension Pulmonary Medical History: Denies: Hx Asthma, Hx Bronchitis, Hx COPD, Hx Pneumonia Neurological Medical History: Denies: Hx Cerebrovascular Accident, Hx Seizures Renal/ Medical History: Denies: Hx Peritoneal Dialysis GI Medical History: Reports: Hx Gastroesophageal Reflux Disease. Denies: Hx He patitis, Hx Hiatal Hernia, Hx Pancreatitis, Hx Ulcer Musculoskeletal Medical History: Denies Hx Arthritis Psychiatric Medical History: Reports: Hx Depression Infectious Medical History: Denies: Hx Hepatitis Past Surgical History: Reports: Hx Cholecystectomy. Denies: Hx Hysterectomy, Hx Mastectomy, Hx Open Heart Surgery, Hx Pacemaker - Immunizations Hx Diphtheria, Pertussis, Tetanus Vaccination: Yes Review of Systems - Review of Systems Constitutional: denies: Fever EENT: No symptoms reported Cardiovascular: See HPI Respiratory: No symptoms reported Gastrointestinal: No symptoms reported Genitourinary: No symptoms reported Female Genitourinary: No symptoms reported Musculoskeletal: No symptoms reported Skin: No symptoms reported Hematologic/Lymphatic: No symptoms reported Neurological/Psychological: See HPI Physical Exam - Vital signs Vitals: Temp Pulse Resp BP Pulse Ox 97.9 F 78 16 119/80 100 03/13/19 01:53 03/13/19 01:53 03/13/19 01:53 03/13/19 01:53 03/13/19 01:53 - Notes Notes: GENERAL: Alert, interacts well. No acute distress. HEAD: Normocephalic, atraumatic. EYES: Pupils equal, round, and reactive to light. Extraocular movements intact. ENT: Oral mucosa moist, tongue midline. NECK: Full range of motion. Supple. Trachea midline. LUNGS: Clear to auscultation bilaterally, no wheezes, rales, or rhonchi. No respiratory distress. HEART: Regular rate and rhythm. No murmur ABDOMEN: Soft, non-tender. Non-distended. Bowel sounds present in all 4 quadrants. EXTREMITIES: Moves all 4 extremities spontaneously. No edema, normal radial and dorsalis pedis pulses bilaterally. No cyanosis. BACK: no cervical, thoracic, lumbar midline tenderness. No saddle anesthesia, normal distal neurovascular exam. NEUROLOGICAL: Alert and oriented x3. Normal speech. cranial nerves II through XII grossly intact. PSYCH: Normal affect, normal mood. SKIN: Warm, dry, normal turgor. No rashes or lesions noted. Course - Re-evaluation Re-evalutation: Laboratory 03/13/19 03/13/19 03/13/19 04:09 04:09 04:09 WBC 13.7 H RBC 4.19 Hgb 13.1 Hct 38.3 MCV 91 MCH 31.4 MCHC 34.4 RDW 13.4 Plt Count 372 Lymph % (Auto) 35.9 [place] % (Auto) 6.6 Eos % (Auto) 1.0 Baso % (Auto) 0.7 Absolute Neuts (auto) 7.6 Absolute Lymphs (auto) 4.9 H Absolute Monos (auto) 0.9 Absolute Eos (auto) 0.1 Absolute Basos (auto) 0.1 Seg Neutrophils % 55.8 Sodium 140.8 Potassium 4.0 Chloride 107 Carbon Dioxide 25 Anion Gap 9 BUN 10 Creatinine 0.71 Est GFR ( Amer) > 60 Est GFR (MDRD) Non-Af > 60 Glucose 94 Calcium 9.1 Total Bilirubin 0.7 Direct Bilirubin 0.1 Neonat Total Bilirubin Not Reportable Neonat Direct Bilirubin Not Reportable Neonat Indirect Bili Not Reportable AST 23 ALT 17 Alkaline Phosphatase 81 Troponin I < 0.012 Total Protein 7.7 Albumin 4.2 TSH Urine Color Urine Appearance Urine pH Ur Specific [place] Urine Protein Urine Glucose (UA) Urine Ketones Urine Blood Urine Nitrite Urine Bilirubin Urine Urobilinogen Ur Leukocyte Esterase Urine RBC (Auto) Squamous Epi Cells Auto Urine Mucus (Auto) Urine Ascorbic Acid Urine HCG, Qual 03/13/19 03/13/19 03/13/19 04:09 04:09 06:40 WBC RBC Hgb Hct MCV MCH MCHC RDW Plt Count Lymph % (Auto) [place] % (Auto) Eos % (Auto) Baso % (Auto) Absolute Neuts (auto) Absolute Lymphs (auto) Absolute Monos (auto) Absolute Eos (auto) Absolute Basos (auto) Seg Neutrophils % Sodium Potassium Chloride Carbon Dioxide Anion Gap BUN Creatinine Est GFR ( Amer) Est GFR (MDRD) Non-Af Glucose Calcium Total Bilirubin Direct Bilirubin Neonat Total Bilirubin Neonat Direct Bilirubin Neonat Indirect Bili AST ALT Alkaline Phosphatase Troponin I < 0.012 Total Protein Albumin TSH 1.65 Urine Color COLORLESS Urine Appearance CLEAR Urine pH 7.0 Ur Specific [place] 1.002 Urine Protein NEGATIVE Urine Glucose (UA) NEGATIVE Urine Ketones NEGATIVE Urine Blood MODERATE H Urine Nitrite NEGATIVE Urine Bilirubin NEGATIVE Urine Urobilinogen NEGATIVE Ur Leukocyte Esterase NEGATIVE Urine RBC (Auto) 1 Squamous Epi Cells Auto 1 Urine Mucus (Auto) RARE Urine Ascorbic Acid NEGATIVE Urine HCG, Qual NEGATIVE Chest X-Ray 03/13/19 03:44 IMPRESSION: 1. Interval development of hazy left basilar opacity. This may represent overlying soft tissues however lingular pneumonic process could produce a similar appearance. 2 view chest could provide additional characterization. Chest X-Ray 03/13/19 04:42 IMPRESSION: 1. Previously identified opacity overlying the left lung base is compatible with overlying soft tissues. No pneumonic process identified. Upon reevaluation patient is sleeping, easily arousable to verbal stimuli. Voices no complaints. States she feels "so much better." Voices she is excited because her has a [employer] ball today. Patient's denying any chest pain or heaviness at this time. Patient's heart score is 0. Patient stable for discharge. - Vital Signs Vital signs: Temp Pulse Resp BP Pulse Ox 97.9 F 78 16 119/80 99 03/13/19 01:53 03/13/19 01:53 03/13/19 01:53 03/13/19 01:53 03/13/19 04:59 - Laboratory Result Diagrams: 03/13/19 04:09 03/13/19 04:09 Laboratory results interpreted by me: 03/13/19 03/13/19 04:09 04:09 WBC 13.7 H Absolute Lymphs (auto) 4.9 H Urine Blood MODERATE H Discharge - Discharge Clinical Impression: Anxiety about health Chest pain Qualifiers: Chest pain type: unspecified Qualified Code(s): R07.9 - Chest pain, unspecified Condition: Stable Disposition: HOME, SELF-CARE Instructions: Anxiety ([facility]), Chest Pain of Unclear Cause ([facility]) Additional Instructions: As we discussed you have been seen and treated in the emergency department for your chest pain. Your work-up at today's visit is negative. Your thyroid function is also within normal limits. You should follow-up with your primary care provider in the next 12 to 24 hours. He should return to the emergency department for any concerns. Referrals: TYRONE VELASQUEZ JR, MD [Primary Care Provider] - Follow up as needed
[2019-03-13 08:02] VITALS: BP 102/64
--- NOTE | 2019-03-13 11:46 | EKG REPORT ---
SEVERITY:- ABNORMAL ECG - ATRIAL FIBRILLATION BORDERLINE PROLONGED QT INTERVAL : Confirmed by: Hailee Jennings MD 13-Mar-2019 11:45:09
== END 2019-03-13 08:00 | disposition home or self-care (01) ==
LOC: ER 01:38
DX: R07.9 Chest pain, unspecified (principal); F41.9 Anxiety disorder, unspecified; R00.2 Palpitations; F17.200 Nicotine dependence, unspecified, uncomplicated
CPT/HCPCS: 36415; 71045; 80053; 81001; 81025; 84443; 84484; 85025; 93005; 93010; 99285

== ENCOUNTER 2019-03-20 12:25 | Emergency (ER) | payer OTHER ==
--- NOTE | 2019-03-20 12:50 | ER Document Report ---
ED Medical Screen (RME) - General Chief Complaint: Chest Tightness Stated Complaint: CHEST TIGHTNESS,NAUSEA Time Seen by Provider: 03/20/19 12:48 Primary Care Provider: TYRONE VELASQUEZ JR, MD [Primary Care Provider] - Follow up as needed Mode of Arrival: Ambulatory Information source: Patient Notes: 33-year-old female presented to ED for complaint of chest pain for over a month and a half. States at times it is much worse like now. She is alert oriented respirations regular nonlabored speaking in full sentences. She has had her gallbladder removed. She does have right upper quadrant abdominal tenderness. She denies any fevers nausea or vomiting. She states she has had cardiac work- ups in the past and they have been negative. She was tearful throughout her interview. I have greeted and performed a rapid initial assessment of this patient. A comprehensive ED assessment and evaluation of the patient, analysis of test results and completion of medical decision making process will be conducted by an additional ED providers. TRAVEL OUTSIDE OF THE [place] IN LAST 30 DAYS: No - Related Data Allergies/Adverse Reactions: No Known Drug Allergies Allergy (Verified 03/20/19 12:48) Past Medical History - Social History Family history: Other - gall bladder problems - Past Medical History Cardiac Medical History: Denies: Hx Coronary Artery Disease, Hx Heart Attack, Hx Hypertension Pulmonary Medical History: Denies: Hx Asthma, Hx Bronchitis, Hx COPD, Hx Pneumonia Neurological Medical History: Denies: Hx Cerebrovascular Accident, Hx Seizures Renal/ Medical History: Denies: Hx Peritoneal Dialysis GI Medical History: Reports: Hx Gastroesophageal Reflux Disease. Denies: Hx Hepatitis, Hx Hiatal Hernia, Hx Pancreatitis, Hx Ulcer Musculoskeltal Medical History: Denies Hx Arthritis Psychiatric Medical History: Reports: Hx Depression Infectious Medical History: Denies: Hx Hepatitis Past Surgical History: Reports: Hx Cholecystectomy. Denies: Hx Hysterectomy, Hx Mastectomy, Hx Open Heart Surgery, Hx Pacemaker - Immunizations Hx Diphtheria, Pertussis, Tetanus Vaccination: Yes Doctor's Discharge - Discharge Referrals: TYRONE VELASQUEZ JR, MD [Primary Care Provider] - Follow up as needed
[2019-03-20 13:23] LABS: ABSOLUTE EOSINOPHILS # (AUTO) 0.1 10^3/uL (0.0-0.6); ABSOLUTE LYMPHOCYTES (AUTO) 2.9 10^3/uL (0.5-4.7); ABSOLUTE MONOCYTES (AUTO) 0.6 10^3/uL (0.1-1.4); ABSOLUTE NEUT (AUTO) 5.7 10^3/uL (1.7-8.2); BASOPHILS % (AUTO) 0.2 % (0-2); EOSINOPHILS % (AUTO) 1.1 % (0-6); HEMATOCRIT 40.2 % (36.0-47.0); HEMOGLOBIN 13.9 g/dL (12.0-15.5); LYMPHOCYTES % (AUTO) 31.2 % (13-45); MEAN CORPUSCULAR HEMOGLOBIN 31.6 pg (27.0-33.4); MEAN CORPUSCULAR HGB CONC 34.5 g/dL (32.0-36.0); MEAN CORPUSCULAR VOLUME 92 fl (80-97); MONOCYTES % (AUTO) 6.8 % (3-13); PLATELET COUNT 362 10^3/uL (150-450); RED BLOOD COUNT 4.38 10^6/uL (3.72-5.28); RED CELL DISTRIBUTION WIDTH 13.3 % (11.5-14.0); SEGMENTED NEUTROPHILS % (AUTO) 60.7 % (42-78); TOTAL CELLS COUNTED % (AUTO) 100 %; WHITE BLOOD COUNT 9.3 10^3/uL (4.0-10.5)
[2019-03-20 13:27] LABS: APPEARANCE,URINE SLIGHTLY-CLOUDY; BILIRUBIN,URINE NEGATIVE (NEGATIVE); COLOR,URINE YELLOW; GLUCOSE, URINE NEGATIVE (NEGATIVE); KETONES,URINE NEGATIVE (NEGATIVE); PROTEIN,URINE NEGATIVE (NEGATIVE); URINE SPECIFIC GRAVITY 1.019; UROBILINOGEN,URINE NEGATIVE mg/dL (<2.0)
[2019-03-20 13:35] LABS: ALBUMIN 4.4 g/dL (3.5-5.0); ALKALINE PHOSPHATASE 65 U/L (38-126); ANION GAP 12 (5-19); ASPARTATE AMINO TRANSFERASE 18 U/L (14-36); BILIRUBIN,DIRECT 0.1 mg/dL (0.0-0.4); BILIRUBIN,TOTAL 0.9 mg/dL (0.2-1.3); BLOOD UREA NITROGEN 8 mg/dL (7-20); CALCIUM 9.7 mg/dL (8.4-10.2); CARBON DIOXIDE 25 mmol/L (22-30); CHLORIDE 106 mmol/L (98-107); GLUCOSE 102 mg/dL (75-110); POTASSIUM 4.3 mmol/L (3.6-5.0); TOTAL PROTEIN 7.9 g/dL (6.3-8.2)
--- NOTE | 2019-03-20 13:49 | RADIOLOGY REPORT (SQ) ---
EXAM DESCRIPTION: CHEST 2 VIEWS COMPLETED DATE/TIME: 03/20/2019 1:33 pm REASON FOR STUDY: chest pain COMPARISON: 03/13/2019 EXAM PARAMETERS: NUMBER OF VIEWS: two views TECHNIQUE: Digital Frontal and Lateral radiographic views of the chest acquired. RADIATION DOSE: NA LIMITATIONS: none FINDINGS: LUNGS AND PLEURA: No opacities, masses or pneumothorax. No pleural effusion. MEDIASTINUM AND HILAR STRUCTURES: No masses or contour abnormalities. HEART AND VASCULAR STRUCTURES: Heart normal size. No evidence for failure. BONES: No acute findings. HARDWARE: None in the chest. OTHER: No other significant finding. IMPRESSION: No acute abnormality of the lungs. No focal airspace opacity. TECHNICAL DOCUMENTATION: JOB ID: [id number] [employer]- All Rights Reserved Reading location - IP/workstation name: [email or web address]
--- NOTE | 2019-03-20 14:35 | ER Document Report ---
ED General - General Chief Complaint: Chest Pain Stated Complaint: CHEST TIGHTNESS,NAUSEA Time Seen by Provider: 03/20/19 12:48 Primary Care Provider: TYRONE VELASQUEZ JR, MD [Primary Care Provider] - Follow up in 1 week Mode of Arrival: Ambulatory TRAVEL OUTSIDE OF THE [place] IN LAST 30 DAYS: No - HPI Notes: 33-year-old female to the emergency department with complaints of chest pain, muscle cramping, throat pain and overwhelming fatigue for the past 2 months. She states that she has been seen several times for her chest pain and fatigue and not a lot has come of it. She states that she had an echo of her heart which was negative and a normal CT of her chest but has not had a CT angiogram. She states that 2 months ago when her symptoms started she was taken off of control. She admits to bilateral leg cramping as well as other muscular cramping. States that her primary care physician started her on Zoloft thinking that maybe this was an episode of depression but that only made her feel worse. She stopped that about a month ago. She states that most recently she is gotten a referral for endocrinology but it has not come through. [place] [facility] [place] [facility] She denies any fevers, chills, passing out, head ache, vomiting. - Related Data Allergies/Adverse Reactions: No Known Drug Allergies Allergy (Verified 03/20/19 12:48) Home Medications: omeprazole Past Medical History - General Information source: Patient - Social History Smoking Status: Current Every Day Smoker Chew tobacco use (# tins/day): No Frequency of alcohol use: None Drug Abuse: None Family History: Reviewed & Not Pertinent Patient has suicidal ideation: No Patient has homicidal ideation: No - Past Medical History Cardiac Medical History: Denies: Hx Coronary Artery Disease, Hx Heart Attack, Hx Hypertension Pulmonary Medical History: Denies: Hx Asthma, Hx Bronchitis, Hx COPD, Hx Pneumonia Neurological Medical History: Denies: Hx Cerebrovascular Accident, Hx Seizures Renal/ Medical History: Denies: Hx Peritoneal Dialysis GI Medical History: Reports: Hx Gastroesophageal Reflux Disease. Denies: Hx Hepatitis, Hx Hiatal Hernia, Hx Pancreatitis, Hx Ulcer Musculoskeletal Medical History: Denies Hx Arthritis Psychiatric Medical History: Reports: Hx Depression Infectious Medical History: Denies: Hx Hepatitis Past Surgical History: Reports: Hx Cholecystectomy. Denies: Hx Hysterectomy, Hx Mastectomy, Hx Open Heart Surgery, Hx Pacemaker - Immunizations Hx Diphtheria, Pertussis, Tetanus Vaccination: Yes Review of Systems - Review of Systems Constitutional: Malaise. denies: Chills, Fever EENT: Throat pain Cardiovascular: Chest pain, Palpitations, Heart racing. denies: Syncope, Dizziness, Lightheaded Respiratory: denies: Cough, Short of breath Gastrointestinal: denies: Abdominal pain, Diarrhea, Nausea, Vomiting Genitourinary: denies: Frequency, Flank pain, Hematuria Musculoskeletal: Muscle pain Skin: No symptoms reported Neurological/Psychological: No symptoms reported -: Yes All other systems reviewed and negative Physical Exam - Vital signs Vitals: Resp Pulse Ox 13 99 03/20/19 13:52 03/20/19 13:52 Selected Entries 03/20/19 18:01 Heart Rate ( 59 Monitors) Respiratory 18 Rate Blood Pressure 101/65 Blood Pressure 77 Mean Interpretation: Normal - General General appearance: Appears well, Alert In distress: None - HEENT Head: Normocephalic, Atraumatic Eyes: Normal Pupils: PERRL Ears: Normal External canal: Normal Tympanic membrane: Normal Sinus: Normal Nasal: Normal Mucous membranes: Normal Pharynx: Normal. No: Erythema, Exudate, Peritonsillar abscess, Post nasal drainage, Retropharyngeal abscess, Uvular edema, Potential airway comprom. Neck: Supple, Thyromegally. No: Lymphadenopathy, Meningismus - Respiratory Respiratory status: No respiratory distress Chest status: Nontender. No: Accessory muscle use Breath sounds: Normal. No: Productive cough, Rhonchi, Stridor, Wheezing Chest palpation: Normal - Cardiovascular Rhythm: Regular Heart sounds: Normal auscultation Murmur: No - Abdominal Inspection: Normal Distension: No distension Bowel sounds: Normal Tenderness: Nontender Organomegaly: No organomegaly - Back Back: Normal, Nontender - Extremities General upper extremity: Normal inspection, Nontender, Normal color, Normal ROM, Normal temperature General lower extremity: Normal inspection, Nontender, Normal color, Normal ROM, Normal temperature, Normal weight bearing. No: Sally's sign - Neurological Neuro grossly intact: Yes Cognition: Normal Orientation: AAOx4 [place] Coma Scale Eye Opening: Spontaneous Trudi Coma Scale Verbal: Oriented Trudi Coma Scale Motor: Obeys Commands [place] Coma Scale Total: 15 Speech: Normal Cranial nerves: Normal. No: Facial palsy, Forehead sparing, Gaze palsy, Sensory deficit Cerebellar coordination: Normal. No: Gait ataxia Motor strength normal: LUE, RUE, LLE, RLE Additional motor exam normals: Equal rock duster. No: Pronator drift Sensory: Normal - Psychological Associated symptoms: Normal affect, Normal mood - Skin Skin Temperature: Warm Skin Moisture: Dry Skin Color: Normal Course - Vital Signs Vital signs: Temp Pulse Resp BP Pulse Ox 18 101/65 100 03/20/19 18:01 03/20/19 18:01 03/20/19 18:00 - Laboratory Result Diagrams: 03/20/19 12:59 03/20/19 12:59 Laboratory results interpreted by me: 03/20/19 12:59 Urine Blood MODERATE H Urine Ascorbic Acid 40 H - Diagnostic Test Radiology reviewed: Image reviewed, Reports reviewed - EKG Interpretation by Al EKG shows normal: Sinus rhythm Rate: Tachycardia Rhythm: Other - + sinus tachycardia at a rate of 105 When compared to previous EKG there are: No significant change Additional EKG results interpreted by me: 03/20/19 NO STEMI, there is some t wave inversion in lead III. There is no significant change from prior from 03/13/19. Discharge - Discharge Clinical Impression: Palpitations, Fatigue Chest pain Qualifiers: Chest pain type: unspecified Qualified Code(s): R07.9 - Chest pain, unspecified Condition: Stable Disposition: HOME, SELF-CARE Instructions: Chest Pain of Unclear Cause ([facility]), Fatigue ([facility]) Additional Instructions: FOLLOW UP WITH CONCRETE BUSTER OPERATOR -- DR. KNOWLES WITHOUT FAIL. RETURN IF WORSE. TAKE MUSCLE RELAXANT. PUSH FLUIDS. Prescriptions: Cyclobenzaprine HCl [Flexeril 5 mg Tablet] 1 - 2 tab PO TID PRN #15 tablet PRN Reason: Referrals: TYRONE VELASQUEZ JR, MD [Primary Care Provider] - Follow up in 1 week
[2019-03-20] MEDS ORDERED: NORMAL SALINE 1000 ML 1,000 ML IV ONE (15:47)
[2019-03-20] MEDS ORDERED: KETOROLAC TROMETHAMINE INJ/PF 30 MG/1 ML SDV IV ONE (15:48)
[2019-03-20 16:14] LABS: FREE T4 (FREE THYROXINE) 1.06 ng/dL (0.78-2.19)
[2019-03-20 16:28] LABS: THYROID STIMULATING HORMONE 1.34 uIU/mL (0.47-4.68)
--- NOTE | 2019-03-20 17:27 | RADIOLOGY REPORT (SQ) ---
EXAM DESCRIPTION: CTA CHEST COMPLETED DATE/TIME: 03/20/2019 5:14 pm REASON FOR STUDY: tachycardia, SOB COMPARISON: Same day chest radiographs TECHNIQUE: CT scan of the chest performed using helical scanning technique with dynamic intravenous contrast injection. Images reviewed with lung, soft tissue and bone windows. Reconstructed coronal and sagittal MPR images reviewed. Additional 3 dimensional post-processing performed to develop Maximal Intensity Projection images (ID P). All images stored on PACS. All CT scanners at this facility use dose modulation, iterative reconstruction, and/or weight based d osing when appropriate to reduce radiation dose to as low as reasonably achievable (ALARA). [facility]: Dose Right [facility]: CareDose [facility]: Dose Right [facility]: Teradose 4D [facility]: Amind CONTRAST TYPE AND DOSE: contrast/concentration: Isovue 350.00 mg/ml; Total Contrast Delivered: 57.0 ml; Total Saline Delivered: 80.0 ml Contrast bolus adequate for pulmonary arteries and aorta. RENAL FUNCTION: None required. The patient is less than 50 years old. RADIATION DOSE: CT Rad equipment meets quality standard of care and radiation dose reduction techniq ues were employed. CTDIvol: 9.9 - 14.3 mGy. DLP: 489 mGy-cm. . LIMITATIONS: None. FINDINGS: LUNGS AND PLEURA: No masses, infiltrates, or pneumothorax. No pleural effusions or pleura l calcifications. AORTA AND GREAT VESSELS: No aneurysm. Contrast bolus not optimized for the aorta. HEART: No pericardial effusion. No significant coronary artery calcifications. PULMONARY ARTERIES: No emboli visualized in the main pulmonary arteries or the segmental branches. HILAR AND MEDIASTINAL STRUCTURES: No identified masses or abnormal nodes. HARDWARE: None in the chest. UPPER ABDOMEN: No significant findings. Limited exam. THYROID AND OTHER SOFT TISSUES: No masses. No adenopathy. BONES: No acute or significant finding. 3D MIPS: Confirm above findings. OTHER: No other significant finding. IMPRESSION: Negative examination for pulmonary embolism. COMMENT: Quality ID # [id number]: Final reports with documentation of one or more dose reduction techniques (e.g., Automated exposure control, adjustment of the mA and/or kV according to patient size, use of iterative reconstruction technique) TECHNICAL DOCUMENTATION: JOB ID: [id number] [employer]- All Rights Reserved Reading location - IP/workstation name: [email or web address]
[2019-03-20] MEDS ORDERED: CYCLOBENZAPRINE HCL 10 MG TABLET PO ONE (17:57)
[2019-03-20 18:18] VITALS: BP 101/65
--- NOTE | 2019-03-21 17:07 | EKG REPORT ---
SEVERITY:- OTHERWISE NORMAL ECG - SINUS TACHYCARDIA MINIMAL ST DEPRESSION, INFERIOR LEADS : Confirmed by: Chapo Holm MD 21-Mar-2019 17:06:45
== END 2019-03-20 18:22 | disposition home or self-care (01) ==
LOC: ER 12:25
DX: R00.2 Palpitations (principal); R53.83 Other fatigue; R07.9 Chest pain, unspecified; R11.0 Nausea; M79.10 Myalgia, unspecified site; F17.200 Nicotine dependence, unspecified, uncomplicated; Z90.49 Acquired absence of other specified parts of digestive tract
CPT/HCPCS: 93005; 36415; 84439; 82550; 83690; 83735; 84443; 84703; 85025; 80053; 81001; 84484; 71046; 71275; 93010; J1885; J7030; 96361; 96374; 99285

== ENCOUNTER → 2019-04-05 | Outpatient (CLI) | payer OTHER ==
--- NOTE | 2019-04-05 15:52 | RADIOLOGY REPORT (SQ) ---
EXAM DESCRIPTION: NM GASTRIC EMPTYING STUDY COMPLETED DATE/TIME: 04/05/2019 12:59 pm REASON FOR STUDY: BLOATING (R14.0) R14.0 ABDOMINAL DISTENSION (GASEOUS) COMPARISON: None. RADIONUCLIDE AND DOSE: 2.16 millicuries Tc-99m Sulfur Colloid. A wide variety of solid foods have been used. The route of agent administration: Oral. TECHNIQUE: 1 minute serial static imaging performed at time of meal, 1 hour, 2 hours, 3 hours, and 4 hours as needed. Once stomach reaches 90% emptying, the test is complete. Image intensity values pl otted with respect to time with linear regression algorithm. LIMITATIONS: None. FINDINGS: Patient was observed for 4 hours. Immediate post meal serves as baseline. Gastric emptying at 60 minutes was 45%. Gastric emptying at 90 minutes was 64% Gastric emptying at 120 minutes was 74%. Gastric emptying at 240 minutes was 89%. Normal values: 60 minutes: 30-90% retained. If less than 30%, abnormally rapid emptying. If greater than 90%, delaye d gastric emptying. 120 minutes: <60% retained. If greater than 60%, delayed gastric emptying. 240 minutes: <10% retained. If greater than 10%, delayed gastric emptying. IMPRESSION: NORMAL GASTRIC EMPTYING. TECHNICAL DOCUMENTATION: JOB ID: [id number] [employer]- All Rights Reserved Reading location - IP/workstation name: [email or web address]
== END ==
LOC: RAD 07:39
PROVIDERS: ATTEND Internal Medicine Gastroenterology
DX: R14.0 Abdominal distension (gaseous) (principal)
CPT/HCPCS: 78264; A9541

== ENCOUNTER 2019-04-30 09:48 | Emergency (ER) | payer OTHER ==
[2019-04-30 10:10] VITALS: BP 117/64
== END 2019-04-30 10:45 | disposition left against medical advice (07) ==
LOC: ER 09:48
DX: Z53.21 Procedure and treatment not carried out due to patient leaving prior to being seen by health care provider (principal); R10.9 Unspecified abdominal pain

== ENCOUNTER 2019-05-31 21:53 | Emergency (ER) | payer OTHER ==
[2019-05-31 22:44] LABS: ABSOLUTE EOSINOPHILS # (AUTO) 0.1 10^3/uL (0.0-0.6); ABSOLUTE LYMPHOCYTES (AUTO) 3.8 10^3/uL (0.5-4.7); ABSOLUTE MONOCYTES (AUTO) 0.6 10^3/uL (0.1-1.4); ABSOLUTE NEUT (AUTO) 8.3 10^3/uL (1.7-8.2); BASOPHILS % (AUTO) 0.3 % (0-2); EOSINOPHILS % (AUTO) 0.6 % (0-6); HEMATOCRIT 39.3 % (36.0-47.0); HEMOGLOBIN 13.8 g/dL (12.0-15.5); LYMPHOCYTES % (AUTO) 29.5 % (13-45); MEAN CORPUSCULAR HEMOGLOBIN 31.7 pg (27.0-33.4); MEAN CORPUSCULAR VOLUME 91 fl (80-97); PLATELET COUNT 347 10^3/uL (150-450); RED BLOOD COUNT 4.34 10^6/uL (3.72-5.28); SEGMENTED NEUTROPHILS % (AUTO) 64.6 % (42-78); TOTAL CELLS COUNTED % (AUTO) 100 %; WHITE BLOOD COUNT 12.9 10^3/uL (4.0-10.5)
[2019-05-31 22:57] LABS: ALKALINE PHOSPHATASE 65 U/L (38-126); ANION GAP 8 (5-19); ASPARTATE AMINO TRANSFERASE 23 U/L (14-36); BILIRUBIN,TOTAL 0.4 mg/dL (0.2-1.3); BLOOD UREA NITROGEN 9 mg/dL (7-20); CARBON DIOXIDE 25 mmol/L (22-30); CHLORIDE 106 mmol/L (98-107); GLUCOSE 110 mg/dL (75-110); POTASSIUM 3.9 mmol/L (3.6-5.0); TOTAL PROTEIN 7.3 g/dL (6.3-8.2)
--- NOTE | 2019-06-01 04:13 | ER Document Report ---
ED General - General Chief Complaint: Arrhythmia Stated Complaint: ELEVATED HEART RATE Time Seen by Provider: 06/01/19 04:05 Primary Care Provider: RENE MARQUEZ MD [Primary Care Provider] - Follow up as needed Mode of Arrival: Ambulatory Information source: Patient TRAVEL OUTSIDE OF THE [place] IN LAST 30 DAYS: No - HPI Onset: Other - last night around 9pm - symptoms lasted about 45 minutes. Onset/Duration: Sudden Quality of pain: Pressure Severity: Moderate Pain Level: 2 Associated symptoms: Other - dizziness, light headedness, palpitations Exacerbated by: Denies Relieved by: Denies Similar symptoms previously: Yes - patient has had palpitations in the past Notes: 33 year old female with a history of Hashimotos Thyroid Disease here for 45 min of palpitations and a chest pressure which started out of the blue when she was about to go to bed around 9pm last night. The patient was recently started on Syntrhoid in March 2019 and she is followed by an Pepper Cutter. The patient denies cough, congestion, shortness of breath, fevers, chills. The patient says this is the first time she has had palpitations since starting Synthroid but she had had some palpitations in the past before. - Related Data Allergies/Adverse Reactions: No Known Drug Allergies Allergy (Verified 03/20/19 12:48) Home Medications: Synthroid Past Medical History - General Information source: Patient - Social History Smoking Status: Current Every Day Smoker Cigarette use (# per day): Yes - 1/2 pack a day Frequency of alcohol use: None Drug Abuse: None Lives with: Spouse/Significant other Family History: Reviewed & Not Pertinent Patient has suicidal ideation: No Patient has homicidal ideation: No - Past Medical History Cardiac Medical History: Denies: Hx Coronary Artery Disease, Hx Heart Attack, Hx Hypertension Pulmonary Medical History: Denies: Hx Asthma, Hx Bronchitis, Hx COPD, Hx Pneumonia Neurological Medical History: Denies: Hx Cerebrovascular Accident, Hx Seizures Renal/ Medical History: Denies: Hx Peritoneal Dialysis GI Medical History: Reports: Hx Gastroesophageal Reflux Disease. Denies: Hx Hepatitis, Hx Hiatal Hernia, Hx Pancreatitis, Hx Ulcer Musculoskeletal Medical History: Denies Hx Arthritis Psychiatric Medical History: Reports: Hx Depression Infectious Medical History: Denies: Hx Hepatitis Past Surgical History: Reports: Hx Cholecystectomy. Denies: Hx Hysterectomy, Hx Mastectomy, Hx Open Heart Surgery, Hx Pacemaker - Immunizations Hx Diphtheria, Pertussis, Tetanus Vaccination: Yes Review of Systems - Review of Systems Constitutional: No symptoms reported EENT: No symptoms reported Cardiovascular: Chest pain, Palpitations, Dizziness, Lightheaded Respiratory: No symptoms reported Gastrointestinal: No symptoms reported Genitourinary: No symptoms reported Female Genitourinary: No symptoms reported Musculoskeletal: No symptoms reported Skin: No symptoms reported Hematologic/Lymphatic: No symptoms reported Neurological/Psychological: No symptoms reported -: Yes All other systems reviewed and negative Physical Exam - Vital signs Vitals: Temp Pulse Resp BP 97.7 F 111 H 20 108/79 05/31/19 21:59 05/31/19 21:59 05/31/19 21:59 05/31/19 21:59 - Notes Notes: GENERAL: Well-appearing, well-nourished and in no acute distress. HEAD: Atraumatic, normocephalic. EYES: Pupils equal round and reactive to light, extraocular movements intact, sclera anicteric, conjunctiva are normal. ENT: TMs normal, nares patent, oropharynx clear without exudates. Moist mucous membranes. NECK: Normal range of motion, supple without lymphadenopathy or JVD. LUNGS: Breath sounds clear to auscultation bilaterally and equal. No wheezes rales or rhonchi. HEART: Regular rate and rhythm without murmurs, rubs or gallops. ABDOMEN: Soft, nontender, normoactive bowel sounds. No guarding, no rebound. No masses appreciated. EXTREMITIES: Normal range of motion, no pitting or edema. No clubbing or cyanosis. NEUROLOGICAL: Cranial nerves II through XII grossly intact. Normal speech, normal gait. PSYCH: Normal mood, normal affect. SKIN: Warm, Dry, normal turgor, no rashes or lesions noted. Course - Re-evaluation Re-evalutation: 06/01/19 07:21 The patient had palpitations for about an hour. She has a normal EKG and normal labs here in the ER. Patient told to follow up with her PCP and a Plate Take Out Worker. - Vital Signs Vital signs: Temp Pulse Resp BP Pulse Ox 97.7 F 51 L 20 93/55 L 100 06/01/19 03:17 06/01/19 03:17 05/31/19 21:59 06/01/19 03:17 06/01/19 03:17 - Laboratory Result Diagrams: 05/31/19 22:20 05/31/19 22:20 Laboratory results interpreted by me: 05/31/19 22:20 WBC 12.9 H Absolute Neuts (auto) 8.3 H - EKG Interpretation by Me EKG shows normal: Sinus rhythm, [place], QRS Complexes Rate: Normal Additional EKG results interpreted by me: 06/01/19 04:08 q waves in III aVF, Short NH, inverted T wave in III Discharge - Discharge Clinical Impression: Palpitations Condition: Stable Disposition: HOME, SELF-CARE Instructions: Palpitations (Irregular or Rapid Heartrate) ([facility]) Additional Instructions: Follow up with your primary care doctor and consider follow up with a Plate Take Out Worker (Dr. Shane) for an outpatient stock patch sawyer. Tell your doctors you had blood work in the ER including electrolytes, a Troponin, and a TSH which were all within normal limits. Referrals: RENE MARQUEZ MD [Primary Care Provider] - Follow up as needed AFSANEH SHANE MD [ACTIVE STAFF] - Follow up as needed
[2019-06-01 07:54] VITALS: BP 103/54
--- NOTE | 2019-06-01 16:20 | EKG REPORT ---
SEVERITY:- ABNORMAL ECG - SINUS RHYTHM SHORT IN INTERVAL, ACCELERATED AV CONDUCTION INFERIOR Q WAVES, PROBABLY NORMAL VARIATION NONSPECIFIC T ABNORMALITIES, INFERIOR LEADS : Confirmed by: Hailee Jennings MD 01-Jun-2019 16:19:05
== END 2019-06-01 07:53 | disposition home or self-care (01) ==
LOC: ER 21:53
DX: R00.2 Palpitations (principal); F17.210 Nicotine dependence, cigarettes, uncomplicated; Z90.49 Acquired absence of other specified parts of digestive tract
CPT/HCPCS: 36415; 80053; 84443; 84484; 85025; 93005; 93010; 99285

== ENCOUNTER 2019-06-09 02:42 | Emergency (ER) | payer OTHER ==
--- NOTE | 2019-06-09 05:24 | RADIOLOGY REPORT (SQ) ---
Chest 2 view on 06/09/2019 at 4:58 AM CLINICAL INDICATION: Chest pain after fall COMPARISON: 03/13/2019 FINDINGS: The lungs are clear. Cardiac, hilar and mediastinal contours are within normal limits. Pulmonary vascularity is within normal limits. No bony abnormality is noted. IMPRESSION: No active disease.
--- NOTE | 2019-06-09 07:32 | EKG REPORT ---
SEVERITY:- NORMAL ECG - SINUS RHYTHM : Confirmed by: Chapo Holm MD 09-Jun-2019 07:32:05
--- NOTE | 2019-06-09 08:24 | ER Document Report ---
ED General - General Chief Complaint: Chest Pain from Injury Stated Complaint: FALL Time Seen by Provider: 06/09/19 07:48 Primary Care Provider: RENE MARQUEZ MD [Primary Care Provider] - Follow up as needed TRAVEL OUTSIDE OF THE [place] IN LAST 30 DAYS: No - HPI Notes: Patient is a 33-year-old female presents emergency department for evaluation after a fall. She states she tripped going downstairs. She fell down 4 concrete stairs. She did not hit her head or lose consciousness. She had a piece of furniture at the base of the stairs with her chest. She has some pain in her chest wall. She also has a small abrasion to her left flank from the fall as well. She states that she has some minimal pain at this time, is worsened with deep breaths. Nothing seems to make it better. She has not really taken any medications for it. - Related Data Allergies/Adverse Reactions: No Known Drug Allergies Allergy (Verified 06/09/19 02:46) Home Medications: PPI Past Medical History - General Information source: Patient - Social History Smoking Status: Current Every Day Smoker Chew tobacco use (# tins/day): No Frequency of alcohol use: None Drug Abuse: None Family History: Reviewed & Not Pertinent Patient has suicidal ideation: No Patient has homicidal ideation: No - Past Medical History Cardiac Medical History: Denies: Hx Coronary Artery Disease, Hx Heart Attack, Hx Hypertension Pulmonary Medical History: Denies: Hx Asthma, Hx Bronchitis, Hx COPD, Hx Pneumonia Neurological Medical History: Denies: Hx Cerebrovascular Accident, Hx Seizures Endocrine Medical History: Reports: Other - Gisell's thyroiditis Renal/ Medical History: Denies: Hx Peritoneal Dialysis GI Medical History: Reports: Hx Gastroesophageal Reflux Disease. Denies: Hx Hepatitis, Hx Hiatal Hernia, Hx Pancreatitis, Hx Ulcer Musculoskeletal Medical History: Denies Hx Arthritis Psychiatric Medical History: Reports: Hx Depression Infectious Medical History: Denies: Hx Hepatitis Past Surgical History: Reports: Hx Cholecystectomy. Denies: Hx Hysterectomy, Hx Mastectomy, Hx Open Heart Surgery, Hx Pacemaker - Immunizations Hx Diphtheria, Pertussis, Tetanus Vaccination: Yes Review of Systems - Review of Systems Constitutional: See HPI Cardiovascular: See HPI Musculoskeletal: See HPI -: Yes All other systems reviewed and negative Physical Exam - Vital signs Vitals: Temp Pulse Resp BP Pulse Ox 97.6 F 75 16 111/75 99 06/09/19 02:45 06/09/19 02:45 06/09/19 02:45 06/09/19 02:45 06/09/19 02:45 - Notes Notes: Vital signs reviewed, please refer to chart. Head is normocephalic, atraumatic. Pupils equal round, reactive to light. Neck is supple without meningismus. Heart is regular rate and rhythm. Lungs are clear to auscultation bilaterally. Examination of the chest wall yields no obvious abnormality. Chest wall excursion is equal bilaterally. No significant ecchymotic region is noted. She is tender over the sternum, and the fourth through seventh ribs bilaterally where they attach. No subcutaneous emphysema. Abdomen is soft, nontender, normoactive bowel sounds throughout. Small abrasion noted to the left flank without any significant tenderness. Extremities without cyanosis, clubbing. Posterior calves are nontender. Peripheral pulses are equal. Skin is warm and dry. Patient is awake, alert, neurological exam is nonfocal. Course - Re-evaluation Re-evalutation: 06/09/19 08:28 Patient presents emergency department for evaluation. She had EKG and chest x- ray. EKG was unremarkable. Chest x-ray showed no acute fractures. I explained to the patient that it is important that she take deep breaths, try to quit smoking. We talked about the increased risk of pneumonia in smokers with chest wall pain. She voiced understanding to this. I will send her home with anti- inflammatories. She is to follow-up with primary care next week, return to the ED with worsening or new concerning symptoms may sort. - Vital Signs Vital signs: Temp Pulse Resp BP Pulse Ox 97.6 F 85 19 94/66 L 100 06/09/19 02:45 06/09/19 06:42 06/09/19 06:42 06/09/19 06:42 06/09/19 06:42 - EKG Interpretation by Me Additional EKG results interpreted by me: 06/09/19 08:28 Sinus mechanism with a rate of 70 bpm. Normal axis and intervals. No acute ST changes concerning for ischemia or infarction. Discharge - Discharge Clinical Impression: left flank abrasion Chest wall contusion Qualifiers: Encounter type: initial encounter Laterality: unspecified laterality Qualified Code(s): S20.219A - Contusion of unspecified front wall of thorax, initial encounter Condition: Stable Disposition: HOME, SELF-CARE Instructions: Rib Contusion ([facility]) Additional Instructions: Take naproxen as directed, with food. Be sure to take deep breaths as discussed. Try to quit smoking. Keep abrasion on your flank clean with soap and water. Follow-up with primary care this week. Return to the emergency department with worsening or new concerning symptoms of any sort. Prescriptions: Naproxen [Naprosyn] 500 mg PO BID #20 tablet Forms: Smoking Cessation Education Referrals: RENE MARQUEZ MD [Primary Care Provider] - Follow up as needed
[2019-06-09 08:38] VITALS: BP 107/72
== END 2019-06-09 08:40 | disposition home or self-care (01) ==
LOC: ER 02:42
DX: S30.811A Abrasion of abdominal wall, initial encounter (principal); S20.219A Contusion of unspecified front wall of thorax, initial encounter; W10.9XXA Fall (on) (from) unspecified stairs and steps, initial encounter; F17.200 Nicotine dependence, unspecified, uncomplicated; Z90.49 Acquired absence of other specified parts of digestive tract
CPT/HCPCS: 71046; 93005; 93010; 99285